=== PATIENT | female | born 1935 | race Two or more races ===

== ENCOUNTER 2017-03-19 01:55 | Inpatient (IN) | payer MEDICARE, OTHER ==
[~2017-03-19] VITALS: Ht 152.4 cm; Wt 74.2 kg
[2017-03-19] VITALS (59 sets, daily range): BP systolic 94–141; BP diastolic 43–98; PULSE 62–93; RESP 11–25; TEMP 98.4; Ht 152.4 cm; Wt 74.2 kg
[~2017-03-19 01:55] MED LIST: AMLO-218 PO; ASPI-664 PO; CLOP75TA27 PO; DIGO125T PO; FERR-55 PO; GLIM1TAB PO; IBUP-1542 PO; INSU100V14 SC; MAGN400T27 PO; METF500T4 PO; METO-448 PO; METO10TA92 PO; MULT1TAB13 PO; NITR0.4T6 SL; PANT40TA3 PO; SERT50TA PO; TRAM50TA2 PO
[2017-03-19] MEDS ORDERED: ACETAMINOPHEN 650 MG SUPP PR STA (01:59)
[2017-03-19] MEDS ORDERED: SOD CHLORIDE 0.9% 2,170 ML IV ONE (02:00)
[2017-03-19 02:23] LABS: ABNORMAL IP MESSAGE 1; BASOPHILS % 0.2 % (0.0-2.0); EOSINOPHILS # 0.1 10^3/ul (0.0-0.5); HEMATOCRIT 37.4 % (37.0-47.0); HEMOGLOBIN 12.7 g/dl (12.0-16.0); LYMPHOCYTES # 0.3 10^3/ul (0.8-2.9); LYMPHOCYTES % 6.2 % (15.0-51.0); MEAN CORPUSCULAR HEMOGLOBIN 28.7 pg (29.0-33.0); MEAN CORPUSCULAR VOLUME 84.6 fl (82.0-101.0); MEAN PLATELET VOLUME 9.5 fl (7.4-10.4); MONOCYTE # 0.1 10^3/ul (0.3-0.9); MONOCYTES % 1.9 % (0.0-11.0); NEUTROPHILS % 90.3 % (39.0-77.0); PLATELET COUNT 149 10^3/UL (140-415); RED BLOOD COUNT 4.42 10^6/ul (4.20-5.40); RED CELL DISTRIBUTION WIDTH 14.6 % (11.5-14.5); WHITE BLOOD COUNT 5.1 10^3/ul (4.8-10.8)
[2017-03-19 02:26] LABS: POSITIVE DIFF @See below
[2017-03-19 02:26] LABS: URINE BLOOD (Dip) POC 2+ (NEGATIVE)
[2017-03-19 02:39] LABS: INR 1.36; PROTIME 16.8 Sec (12.2-14.2); PT RATIO 1.3
[2017-03-19 02:40] LABS: PARTIAL THROMBOPLASTIN TIME 32.4 Sec (25.0-35.0)
--- NOTE | 2017-03-19 02:41 | RADRPT ---
PROCEDURE: XR Chest. CLINICAL INDICATION: Sepsis. TECHNIQUE: Single frontal chest x-ray. COMPARISON: 10/12/2015 FINDINGS: Patient is rotated to the right. The patient is status post time the. Heart is enlarged.. There ar e atherosclerotic calcifications of the aortic knob. There is mild CHF. There is no pleural effusi on. There is no pneumothorax. The osseous structures are unremarkable. IMPRESSION: Cardiomegaly. Mild CHF. RPTAT: HMVK .Shady Lake MD, Date Time Electronically viewed and signed by .Shady Lake MD, on 03/19/2017 02:40 .K/
[2017-03-19 02:45] LABS: ALBUMIN 3.7 g/dl (3.3-4.9); ALBUMIN/GLOBULIN RATIO 0.86; BILIRUBIN,DIRECT 2.9 mg/dl (0.00-0.20); BILIRUBIN,INDIRECT 1.7 mg/dl (0-1.1); BILIRUBIN,TOTAL 4.6 mg/dl (0.2-1.3); CALCIUM 8.9 mg/dl (8.4-10.2); CREATININE 1.24 mg/dl (0.44-1.00); POTASSIUM 3.7 mmol/L (3.5-5.1)
[2017-03-19 02:54] LABS: TROPONIN-I 0.038 ng/ml (0.00-0.12)
--- NOTE | 2017-03-19 03:58 | RADRPT ---
PROCEDURE: CT Abdomen and pelvis without contrast. CLINICAL INDICATION: Abdominal pain. TECHNIQUE: CT scan of the abdomen and pelvis was performed on a multi-detector high-resolution CT scanner. Contiguous axial images were obtained from the lung bases to the ischial tuberosities wit hout intravenous contrast. Coronal and sagittal reformatted images were also obtained. Images were reviewed on the PACS workstation. One or more of the following dose reduction techniques were used: - Automated exposure control. - Adjustment of the mA and/or kV according to patient size. - Use of iterative reconstruction technique. Exam CTD/vol = 20.31 mGy. Total exam DLP = 2367.45 mGy-cm. COMPARISON: 10/09/2015. FINDINGS: Evaluation of the lung bases demonstrates mild bibasilar atelectasis. The heart is moderately enlar ged with coronary artery calcifications. There is dilatation of the ascending aorta measuring up to 5.0 cm in diameter. Abdomen: The liver is normal in size with no focal mass identified. The patient is status post cho lecystectomy. There is moderate dilatation of the biliary tree with the common bile duct measuring up to 2.6 cm. There are small calculi within the common bile duct. There is hyperdensity within th e distal common bile duct at the level of the pancreatic head measuring 12 x 9 mm. The spleen, panc reas and bilateral adrenal glands are within normal limits. Bilateral kidneys are normal in size wi th multiple cysts. There is no radiopaque renal or ureteral calculus identified. There is no hydro nephrosis or hydroureter. There is no retroperitoneal adenopathy. The abdominal aorta is of normal caliber with scattered atherosclerotic calcifications. There is no abnormal bowel wall thickening or distension. There is no bowel obstruction or free air . A normal appendix is identified. There is no diverticulosis or diverticulitis. There is no asci joby. Pelvis: The bladder contains a Bonilla catheter. The uterus and adnexa are within normal limits. Th ere is no significant pelvic adenopathy or free fluid. Evaluation of the osseous structures demonstrates no suspicious lytic or blastic lesion. There are m oderate compression deformities of the L1 and L2 vertebral bodies with up to 70% loss in vertebral b adrian heights with evidence of prior vertebroplasty. There are mild to moderate compression deformiti es of the T12 and L3 vertebral bodies. The patient is status post total right hip arthroplasty. IMPRESSION: Moderate dilatation of the biliary tree with evidence of choledocholithiasis, unchanged from 016. There is hyperdensity within the distal common bile duct at the level of the pancreatic head wh ich could suggest stones or debris. Mild bibasilar atelectasis. Moderate cardiomegaly. Vascular calcifications reflective of atherosclerosis. Bilateral renal cysts. Multilevel mild to moderate compression deformities of the thoracolumbar spine, stable compared with 10/09/2015. Dilated ascending aorta measuring up to 5.0 cm, unchanged. .Contreras Colin MD, Date Time Electronically viewed and signed by .Contreras Colin MD, on 03/19/2017 03:57 .T/
[2017-03-19 04:00] LABS: ADD UMIC YES; UR ASCORBIC ACID NEGATIVE (NEGATIVE); UR BACTERIA FEW /HPF (NONE SEEN); UR BILIRUBIN (Dip) 1+ mg/dL (NEGATIVE); UR BLOOD (Dip) 2+ mg/dL (NEGATIVE); UR BUDDING YEAST MODERATE /HPF (NONE SEEN); UR CLARITY CLOUDY (CLEAR); UR COLOR AMBER (YELLOW); UR GLUCOSE (Dip) NEGATIVE (NEGATIVE); UR KETONES (Dip) NEGATIVE (NEGATIVE); UR LEUKOCYTE ESTERASE (Dip) 3+ Leu/ul (NEGATIVE); UR MUCUS FEW /HPF (NONE SEEN); UR NITRITE (Dip) NEGATIVE (NEGATIVE); UR RBC 40 /HPF (0-5); UR SPECIFIC GRAVITY (Dip) 1.017 (1.003-1.030); UR SQUAMOUS EPITHELIAL CELL FEW /HPF (FEW); UR TOTAL PROTEIN (Dip) 2+ mg/dl (NEGATIVE); UR UROBILINOGEN (Dip) 2+ mg/dL (NEGATIVE)
[2017-03-19] MEDS ORDERED: CEFEPIME 2GM/50 ML (PMX) 50 ML IVPB STA (04:11)
[2017-03-19] MEDS ORDERED: VANCOMYCIN 1 GM (PMX) 250 ML IVPB ONE (04:30)
[2017-03-19] MEDS ORDERED: PANTOPRAZOLE (EC) 40 MG TAB PO ONE (05:00)
[2017-03-19] MEDS ORDERED: DEXAMETHASONE 10 MG/ML 1 ML INJ IV ONE (05:30)
--- NOTE | 2017-03-19 05:42 | ERA ---
ER Documentation Chief Complaint Date/Time DATE: 03/19/17 TIME: 05:39 Chief Complaint abd pain, vomit, fever 105 at home, ALOC HPI This 81-year-old female with vomiting vomiting fever at home. She is also been mildly altered for the family as she is been more lethargic. Patient has history of choledocholithiasis and never had a Bonilla cystectomy.. History of GERD. The last 24 hours above fevers or chills. Mild nausea. 2 episodes of vomiting which nonbilious nonbloody. No other current complaints for the family. ROS All systems reviewed and are negative except as per history of present illness. Medications Home Meds Active Scripts Magnesium Oxide* (Mag-Oxide*) 400 Mg Tab, 400 MG PO DAILY for 30 Days, TAB Prov:LOLITA WEBER 10/21/15 Metoprolol Tartrate* (Lopressor*) 25 Mg Tab, 25 MG PO BID for 30 Days, TAB Prov:LOLITA WEBER 10/21/15 Ibuprofen* (Motrin*) 600 Mg Tab, 600 MG PO Q8 Y for FEVER GREATER THAN 100.6, # 30 Prov:SAHWIN FOX MD 01/31/15 Reported Medications Metoclopramide* (Reglan*) 10 Mg Tablet, 10 MG PO Q6H Y for NAUSEA AND OR VOMITING, TAB 10/09/15 Ferrous Sulfate* (Ferrous Sulfate*) 325 Mg Tablet, 325 MG PO DAILY, TAB 01/31/15 Sertraline Hcl* (Zoloft*) 50 Mg Tablet, 25 MG PO QHS, TAB 01/31/15 Aspirin* (Aspirin* EC) 81 Mg Tablet.dr, 81 MG PO DAILY, TAB 01/31/15 Tramadol HCl (Tramadol HCl) 50 Mg Tab, 50 MG PO Q6H Y for PAIN, TAB 01/31/15 Clopidogrel Bisulfate (Clopidogrel) 75 Mg Tablet, 75 MG PO DAILY, TAB 01/31/15 Digoxin* (Digoxin*) 0.125 Mg Tab, 0.125 MG PO EVERY OTHER DAY, TAB If HR greater than 60 01/31/15 Glimepiride* (Amaryl*) 1 Mg Tablet, 2 MG PO BID, TAB If Blood glucose greater than 150 01/31/15 Multivitamins/Minerals* (Multivitamin w/Minerals*) 1 Tab Tablet, 1 TAB PO DAILY 6/1/13 Nitroglycerin* (Nitroglycerin* SL) 0.4 Mg Tab.subl, 0.4 MG SL Q5 MINUTES X3 Y 12/13/12 Metformin* (Glucophage*) 500 Mg Tab, 500 MG PO BID 12/13/12 Pantoprazole* (Protonix*) 40 Mg Tablet.dr, 40 MG PO DAILY 12/13/12 Discontinued Reported Medications Insulin Regular, Human (Humulin R) 100 Units/Ml Vial, 0 SC SLIDING SCALE AC, VIAL 01/31/15 Discontinued Scripts Amlodipine Besylate* (Norvasc*) 10 Mg Tab, 10 MG PO DAILY for 30 Days, TAB Prov:LOLITA WEBER 10/21/15 Allergies Allergies: Coded Allergies: No Known Allergy (Unverified , 03/19/17) PMhx/Soc History of Surgery: Yes (ERCP, KYPHOPLASTY) Anesthesia Reaction: No Hx Neurological Disorder: No Hx Respiratory Disorders: No Hx Cardiac Disorders: Yes Hx Psychiatric Problems: No Hx Miscellaneous Medical Probl: Yes (CHOLECYSTITIS, BILE STONE, UTI, RT HIP FX) Hx Alcohol Use: No Hx Substance Use: No Hx Tobacco Use: No Smoking Status: Unknown if ever smoked Physical Exam Vitals Vital Signs Date Time Temp Pulse Resp B/P Pulse Ox O2 Delivery O2 Flow Rate FiO2 03/19/17 04:10 100.7 128 16 92/69 100 Nasal Cannula 5.0 03/19/17 02:10 Non Rebreather 15 03/19/17 01:55 103.4 177 32 139/99 88 Physical Exam Const: [] Head: Atraumatic Eyes: Normal Conjunctiva ENT: Normal External Ears, Nose and Mouth. Neck: Full range of motion..~ No meningismus. Resp: Clear to auscultation bilaterally Cardio: Regular rate and rhythm, no murmurs Abd: Soft, non tender, non distended. Normal bowel sounds Skin: No petechiae or rashes Back: No midline or flank tenderness Ext: No cyanosis, or edema Neur: Awake and alert Psych: Normal Mood and Affect Result Diagram: 03/19/17 0200 03/19/17 0200 Results 24 hrs Laboratory Tests Test 03/19/17 02:00 03/19/17 02:20 03/19/17 02:32 White Blood Count 5.110^3/ul Red Blood Count 4.4210^6/ul Hemoglobin 12.7g/dl Hematocrit 37.4% Mean Corpuscular Volume 84.6fl Mean Corpuscular Hemoglobin 28.7pg Mean Corpuscular Hemoglobin Concent 34.0g/dl Red Cell Distribution Width 14.6% Platelet Count 18933^3/UL Mean Platelet Volume 9.5fl Neutrophils % 90.3% Lymphocytes % 6.2% Monocytes % 1.9% Eosinophils % 1.0% Basophils % 0.2% Nucleated Red Blood Cells % 0.0/100WBC Neutrophils # (Manual) 4.610^3/ul Lymphocytes # 0.310^3/ul Monocytes # 0.110^3/ul Eosinophils # 0.110^3/ul Basophils # 0.010^3/ul Nucleated Red Blood Cells # 0.010^3/ul Prothrombin Time 16.8Sec Prothrombin Time Ratio 1.3 INR International Normalized Ratio 1.36 Activated Partial Thromboplast Time 32.4Sec Sodium Level 137mmol/L Potassium Level 3.7mmol/L Chloride Level 104mmol/L Carbon Dioxide Level 19mmol/L Anion Gap 18 Blood Urea Nitrogen 28mg/dl Creatinine 1.24mg/dl Glucose Level 174mg/dl Lactic Acid Level 2.7mmol/L Calcium Level 8.9mg/dl Total Bilirubin 4.6mg/dl Direct Bilirubin 2.90mg/dl Indirect Bilirubin 1.7mg/dl Aspartate Amino Transf (AST/SGOT) 350IU/L Alanine Aminotransferase (ALT/SGPT) 426IU/L Alkaline Phosphatase 342IU/L Troponin I 0.038ng/ml Total Protein 8.0g/dl Albumin 3.7g/dl Globulin 4.30g/dl Albumin/Globulin Ratio 0.86 Urine Color LINDY Urine Clarity CLOUDY Urine pH 5.0 Urine Specific [place] 1.017 Urine Ketones NEGATIVEmg/dL Urine Nitrite NEGATIVEmg/dL Urine Bilirubin 1+mg/dL Urine Urobilinogen 2+mg/dL Urine Leukocyte Esterase 3+Demarco/ul Urine Microscopic RBC 40/HPF Urine Microscopic WBC > 182/HPF Urine Squamous Epithelial Cells FEW/HPF Urine Bacteria FEW/HPF Urine Mucus FEW/HPF Urine Yeast (Budding) MODERATE/HPF Urine Hemoglobin 2+mg/dL Urine Glucose NEGATIVEmg/dL Urine Total Protein 2+mg/dl Bedside Urine pH (LAB) 5.5 Bedside Urine Protein (LAB) 2+ Bedside Urine Glucose (UA) Negative Bedside Urine Ketones (LAB) Negative Bedside Urine Blood 2+ Bedside Urine Nitrite (LAB) Positive Bedside Urine Leukocyte Esterase (L 3+ Current Medications Medications (Trade) Dose Ordered Sig/Alise Route PRN Reason Start Time Stop Time Status Last Admin Dose Admin Acetaminophen 650 mg 650 mg ONCE STAT IL 03/19/17 01:59 03/19/17 02:02 DC 03/19/17 02:17 Sodium Chloride 2,170 ml @ 2,170 mls/hr BOLUS X1 ONCE IV 03/19/17 02:00 03/19/17 02:59 DC 03/19/17 02:17 Cefepime HCl 50 ml @ 100 mls/hr ONCE STAT IVPB 03/19/17 04:11 03/19/17 04:40 DC 03/19/17 04:55 Vancomycin HCl (Vancocin) 250 ml @ 125 mls/hr ONCE ONCE IVPB 03/19/17 04:30 03/19/17 06:29 Pantoprazole (Protonix Tab) 40 mg ONCE ONCE PO 03/19/17 05:00 03/19/17 05:01 UNV Dexamethasone (Decadron) 10 mg ONCE ONCE IV 03/19/17 05:30 03/19/17 05:31 DC Procedures/MDM EKG: Rate/Rhythm: Sinus tachycardia 134 QRS, ST, T-waves: [No changes consistent w/ acute ischemia] Impression: [No evidence of ischemia or arrhythmia] Chest X-ray 1V Interpreted by me: Soft Tissue: No acute abnormalities Bones: No acute abnormalities Mediastinum/Cardiac Silhouette/Lungs: [No acute abnormalities] Medical decision-m[age]-year-old female with obvious choledocholithiasis along with elevation laboratory values for liver function tests, patient likely has biliary tree issues. Reviewing the medical record, patient on this once in the past. Patient will be admitted to [facility] physician collections agent Dr. Rutherford. Please to telemetry. Patient's infectious symptoms have not stabilized and the patient is at risk of rapid decompensation. The patient will be admitted for careful hydration, antibiotic therapy, and infectious source control. Severe Sepsis Assessment: Infectious Source: Biliary tree End organ damage indicated by: [Lactate > 2.0 mmol/L Severe Sepsis Managment: Blood Cultures X 2 before broad spectrum antibiotics initiated within 3 hours of recognition. 30 ml/kg NS bolus Completed Initial Lactate: 2.7 repeat Lactate pending Critical Care: Time: 45 minutes Treatments/Evaluations: Emergent fluid management, while maintaining close respiratory support. Immediate broad spectrum antibiotic therapy. Simultaneous assessment for possible sources in order to direct therapy. Consideration for invasive and chemical support to prevent respiratory or cardiac collapse. Accepting Care Team: Current data and ongoing care discussed. Time: 4:45 AM primary Provider: Sangeeta consulting: [XOXOXO] Outstanding Data: none Departure Diagnosis: Primary Impression: Sepsis Qualified Code: A41.9 - Sepsis, due to unspecified organism Additional Impression: Choledocholithiasis Condition: Critical TAZ GORDON Mar 19, 2017 05:42
[2017-03-19 05:57] LABS: ALBUMIN 1.8 g/dl (3.3-4.9); BILIRUBIN,DIRECT 1.2 mg/dl (0.00-0.20); BILIRUBIN,INDIRECT 0.8 mg/dl (0-1.1); TOTAL PROTEIN 4.3 g/dl (6.1-8.1)
[2017-03-19] MEDS ORDERED: ONDANSETRON (ODT) 4 MG TAB ODT ONE (06:09)
[2017-03-19] MEDS ORDERED: LIDOCAINE 1% (MPF) 5 ML VIAL SC ONE (06:30)
--- NOTE | 2017-03-19 07:06 | QN ---
Documentation Comment Patient was signed out to me by Dr. Castro. The patient has been persistently hypotensive despite 30 mL/kg fluid bolus. Dr. Castro ordered a PICC line prior to my arrival. I will upgrade the patient from telemetry to the ICU as the patient now has a diagnosis of septic shock. The diagnosis of septic shock was made at 7:03AM. Dr. Chamberlain has been called for ICU orders. I have ordered Levophed to be started as well to keep a blood pressure of a systolic greater than 90. Volume reassessment: Temperature 98.4, blood pressure 78/54, heart rate 94, respiratory rate 24, 99% oxygen saturation Skin: Warm and dry Pulses: 2+ palpable radial pulses General: Mild distress Cardiovascular: Regular rate and rhythm without murmur Pulmonary: Decreased breath sounds bilaterally JOAQUÍN STONE MD Mar 19, 2017 07:06
[2017-03-19] MEDS ORDERED: METOCLOPRAMIDE 10 MG TAB PO PRN (07:30)
[2017-03-19] MEDS: NORepinephrine 8MG/250 ML (PMX 250 ML IV STA ×2 (07:37→08:35)
[2017-03-19] MEDS ORDERED: GLIMEPIRIDE 2 MG TAB PO SCH (08:00)
[2017-03-19 08:01] LABS: ABNORMAL IP MESSAGE 1; BASOPHILS % 0.1 % (0.0-2.0); EOSINOPHILS % 0.1 % (0.0-7.0); HEMATOCRIT 32.8 % (37.0-47.0); HEMOGLOBIN 10.4 g/dl (12.0-16.0); LYMPHOCYTES # 0.5 10^3/ul (0.8-2.9); LYMPHOCYTES % 4.1 % (15.0-51.0); MEAN CORPUSCULAR HEMOGLOBIN 27.7 pg (29.0-33.0); MEAN CORPUSCULAR HGB CONC 31.7 g/dl (32.0-37.0); MEAN CORPUSCULAR VOLUME 87.5 fl (82.0-101.0); MEAN PLATELET VOLUME 9.7 fl (7.4-10.4); MONOCYTE # 0.5 10^3/ul (0.3-0.9); MONOCYTES % 4.1 % (0.0-11.0); NEUTROPHILS % 91.1 % (39.0-77.0); PLATELET COUNT 109 10^3/UL (140-415); RED BLOOD COUNT 3.75 10^6/ul (4.20-5.40); WHITE BLOOD COUNT 11.5 10^3/ul (4.8-10.8)
[2017-03-19 08:06] LABS: POSITIVE DIFF @See below
[2017-03-19] MEDS: FLUCONAZOLE 100 MG/NS (PMX) 50 ML IVPB SCH (08:25)
[2017-03-19 08:26] LABS: CALCIUM 7.3 mg/dl (8.4-10.2); CREATININE 1.37 mg/dl (0.44-1.00)
[2017-03-19] MEDS ORDERED: DIGOXIN 0.125 MG TAB PO SCH (08:42)
--- NOTE | 2017-03-19 10:09 | HP ---
Date/Time of Note Date/Time of Note DATE: 03/19/17 TIME: 09:16 Assessment/Plan VTE Prophylaxis VTE Prophylaxis Intervention: SCD's Lines/Catheters Urinary Cath still in place: No Assessment/Plan Assessment/Plan 81 years old female with: 1. Choledocholithiasis, likely ascending cholangitis with sepsis, Dr Rivers has been consulted, for now he is recommending IV antibiotics, patient will need ERCP when more stable, hopefully in the next 48 hours. Continue current care Follow up on cultures Daughter at bedside has been updated 2. Coronary artery disease, status post bypass surgery and aortic valve replacement. Patient apparently was also complaining of possible chest pain therefore troponins are being trended. Holding off beta-blockers due to hypotension 3. Chronic atrial fibrillation, currently in sinus rhythm, continue digoxin, check digoxin level today. No anticoagulation currently, patient has been on aspirin as an outpatient 4. Diabetes mellitus: Sliding scale insulin, check A1c. 5. Hypertension: Ongoing hypotension requiring pressors, hold off for all antihypertensive Prophylaxis: Protonix for GI prophylaxis, SCDs for DVT prophylaxis Disposition: ICU close monitoring, gastroenterology consult pending, continue IV antibiotics. HPI/ROS Admit Date/Time Admit Date/Time Mar 19, 2017 at 04:35 Hx of Present Illness Chief complaint: Fevers, chills, nausea, vomiting History of presenting illness: This is a 81-year-old female with history of coronary artery disease status post coronary artery bypass surgery and aortic valve replacement remotely, retention, diabetes mellitus, hyperlipidemia, status post a cholecystectomy September 2015 at [facility], presented with abdominal pain, nausea vomiting fevers and chills for 1 week now. Patient reports that last week on she started having episodes of nausea and upper abdominal pain, intermittent severe pain. Her daughter did confirm the symptoms. The patient lives alone but family visits very frequently. According to the daughter the patient p.o. intake has decreased over the past few days, she had an episode of fever yesterday up to 102, along with chills nausea and vomiting. She herself reports that her abdominal pain has been worsening. The emergency department she was found to be hypotensive, did not really respond to 4 L bolus normal saline therefore she was started on Levophed for blood pressure support. She has been febrile. She denies chills currently. She still having abdominal pain. CAT scan of the abdomen and pelvis is showing choledocholithiasis, clinically she fits cholangitis at this point. Dr. Rivers from gastroenterology was contacted and consulted, at this point the patient will need an ERCP when more stable, hopefully this can be done in the next 48 hours. She has been admitted to the intensive care unit. ROS Constitutional: chills, fatigue, febrile, poor po Cardiovascular: no complaints Gastrointestinal: decreased appetite, pain (Her abdomen, intermittent), vomiting Genitourinary: no complaints Musculoskeletal: no complaints Skin: no complaints Neurologic: no complaints Endocrine: no complaints PMH/Family/Social Past Medical History Diabetes mellitus Hypertension Hyperlipidemia Coronary artery disease status post coronary artery bypass surgery and aortic valve replacement Atrial fibrillation, chronic Cholelithiasis Past Surgical History Status post cholecystectomy September 2015 at [facility] Status post coronary artery bypass surgery and aortic valve replacement with bioprosthetic valve remotely Family History Significant Family History: no pertinent family hx Social History Alcohol Use: none Smoking Status: Never smoker Drug Use: none Exam/Review of Systems Vital Signs Vitals Vital Signs Date Time Temp Pulse Resp B/P Pulse Ox O2 Delivery O2 Flow Rate FiO2 03/19/17 08:44 85 24 116/84 100 Nasal Cannula 2.0 03/19/17 08:35 98.9 Exam Constitutional: alert, oriented, other (Primarily Swedish speaking) Respiratory: clear to auscultation, normal air movement Cardiovascular: nl pulses, regular rate and rhythm Gastrointestinal: soft, tender (Diffuse intermittent TTP, primarily upper abdomen/right upper quadrant) Musculoskeletal: nl extremities to inspection Extremities: normal pulses, other (No edema, clubbing or cyanosis) Neurological: CLOTH PACKER II-XII intact, lethargic, nl mental status, nl speech, other (Generalized weakness) Labs Result Diagram: 03/19/1733 03/19/17 0733 Medications Medications Current Medications Fluconazole/ Sodium Chloride (Diflucan 100 Mg/ NS (Pmx)) 50 ml @ 50 mls/hr Q24H IVPB Last administered on 03/19/17t 08:25; Admin Dose 50 MLS/HR; Start 03/19/17 at 07:30 Aspirin (Halfprin) 81 mg DAILY PO ; Start 03/19/17 at 09:00 Digoxin (Digoxin) 0.125 mg ONCE PO ; Start 03/19/17 at 08:42; Stop 03/19/17 at 10: 00 Ferrous Sulfate (Ferrous Sulfate (Ec)) 325 mg DAILY PO ; Start 03/19/17 at 09:00 Magnesium Oxide (Mag-Ox 400) 400 mg DAILY PO ; Start 03/19/17 at 09:00 Metoclopramide HCl (Reglan) 10 mg Q6H PRN PO NAUSEA AND/OR VOMITING; Start 03/19 at 07:30 Multivitamins/ Minerals (Theragran-M) 1 tab DAILY PO ; Start 03/19/17 at 09:00 Pantoprazole (Protonix Tab) 40 mg DAILY PO ; Start 03/20/17 at 07:00 Sertraline HCl (Zoloft) 25 mg QHS PO ; Start 03/19/17 at 21:00 KUMAR CELESTIN Mar 19, 2017 10:09
[2017-03-19] MEDS: MAGNESIUM OXIDE 400 MG TAB PO SCH (10:14)
[2017-03-19] MEDS: FERROUS SULFATE (EC) 325 MG TAB PO SCH (10:14)
[2017-03-19] MEDS: MULTIVITAMINS/MINERALS TAB PO SCH (10:14)
[2017-03-19] MEDS: ASPIRIN (EC) 81 MG TAB PO SCH (10:14)
[2017-03-19] MEDS: SOD CHLORIDE 0.9% 1,000 ML IV SCH ×2 (10:15→22:30)
[2017-03-19] MEDS ORDERED: ACETAMINOPHEN 650 MG SUPP PR PRN (10:30)
[2017-03-19] MEDS ORDERED: DEXTROSE 50% 50 ML SYRINGE IV PRN ×2 (10:30)
[2017-03-19] MEDS ORDERED: MAGNESIUM HYDROXIDE 30ML CUP PO PRN (10:30)
[2017-03-19] MEDS ORDERED: NACL 0.9% 3 ML SYG IV SCH (10:30)
[2017-03-19] MEDS ORDERED: NITROGLYCERIN (SL) 0.4 MG TAB SL PRN (10:30)
[2017-03-19] MEDS ORDERED: GLUCAGON 1 MG INJ IM PRN (10:30)
[2017-03-19] MEDS ORDERED: GLUCOSE GEL 15 GRAM TUBE PO PRN ×2 (10:30)
[2017-03-19] MEDS ORDERED: ACETAMINOPHEN 325 MG TAB PO PRN (10:30)
[2017-03-19] MEDS ORDERED: ONDANSETRON 4 MG INJ IV PRN (10:30)
[2017-03-19] MEDS ORDERED: BISACODYL 10 MG SUPP PR PRN (10:30)
[2017-03-19] MEDS ORDERED: GLUCOSE GEL 15 GRAM TUBE BUCCAL PRN (10:30)
[2017-03-19] MEDS ORDERED: DOCUSATE SODIUM 100 MG CAP PO PRN (10:30)
[2017-03-19 10:58] LABS: INR 1.42; PROTIME 17.4 Sec (12.2-14.2); PT RATIO 1.4
[2017-03-19 10:59] LABS: PARTIAL THROMBOPLASTIN TIME 35.5 Sec (25.0-35.0)
[2017-03-19 11:12] LABS: CK-MB 1.46 ng/ml (0.0-2.4)
[2017-03-19] MEDS: MEROPENEM 1 GM/50ML(PMX) 50 ML IVPB SCH ×2 (11:15→21:22)
[2017-03-19 11:20] LABS: TROPONIN-I 0.221 ng/ml (0.00-0.12)
[2017-03-19] MEDS: INSULIN ASPART [NOVOLOG] 3 ML PEN SC SCH ×3 (13:43→21:24)
[2017-03-19 17:24] LABS: CK-MB 1.66 ng/ml (0.0-2.4)
[2017-03-19 17:32] LABS: TROPONIN-I 0.134 ng/ml (0.00-0.12)
[2017-03-19] MEDS ORDERED: SOD CHLORIDE 0.9% 250 ML IV* ONE (18:55)
[2017-03-19] MEDS ORDERED: PHYTONADIONE 10 MG/ML INJ SC ONE (19:00)
[2017-03-19] MEDS: SERTRALINE 50 MG TAB PO SCH (21:17)
[2017-03-19 22:44] LABS: CK-MB 1.74 ng/ml (0.0-2.4); TROPONIN-I 0.115 ng/ml (0.00-0.12)
[2017-03-20] VITALS (33 sets, daily range): BP systolic 95–152; BP diastolic 59–106; PULSE 52–115; RESP 12–25
[2017-03-20] MEDS: INSULIN ASPART [NOVOLOG] 3 ML PEN SC SCH ×6 (00:56→21:27)
[2017-03-20] MEDS ORDERED: ACCU-CHEK XX SCH (02:00)
[2017-03-20 05:14] LABS: ABNORMAL IP MESSAGE 1; HEMATOCRIT 28.5 % (37.0-47.0); HEMOGLOBIN 9.2 g/dl (12.0-16.0); LYMPHOCYTES # 0.7 10^3/ul (0.8-2.9); LYMPHOCYTES % 8.8 % (15.0-51.0); MEAN CORPUSCULAR HEMOGLOBIN 27.7 pg (29.0-33.0); MEAN CORPUSCULAR HGB CONC 32.3 g/dl (32.0-37.0); MEAN CORPUSCULAR VOLUME 85.8 fl (82.0-101.0); MEAN PLATELET VOLUME 10.1 fl (7.4-10.4); MONOCYTE # 0.5 10^3/ul (0.3-0.9); MONOCYTES % 6.4 % (0.0-11.0); NEUTROPHILS % 83.8 % (39.0-77.0); PLATELET COUNT 92 10^3/UL (140-415); RED BLOOD COUNT 3.32 10^6/ul (4.20-5.40); RED CELL DISTRIBUTION WIDTH 14.9 % (11.5-14.5); WHITE BLOOD COUNT 7.7 10^3/ul (4.8-10.8)
[2017-03-20 05:18] LABS: POSITIVE DIFF @See below
[2017-03-20 05:31] LABS: ALBUMIN 2.8 g/dl (3.3-4.9); ALBUMIN/GLOBULIN RATIO 0.87; BILIRUBIN,INDIRECT 0.5 mg/dl (0-1.1); BILIRUBIN,TOTAL 0.5 mg/dl (0.2-1.3); CALCIUM 7.9 mg/dl (8.4-10.2); CREATININE 1.14 mg/dl (0.44-1.00); POTASSIUM 3.8 mmol/L (3.5-5.1)
[2017-03-20 05:38] LABS: MAGNESIUM 1.8 mg/dl (1.7-2.5); PHOSPHORUS 3.5 mg/dl (2.5-4.9)
[2017-03-20 05:41] LABS: CK-MB 1.79 ng/ml (0.0-2.4); TROPONIN-I 0.105 ng/ml (0.00-0.12)
[2017-03-20] MEDS ORDERED: PANTOPRAZOLE 40 MG INJ IV SCH (06:00)
[2017-03-20] MEDS ORDERED: SUCCINYLCHOLINE CHLORIDE 100 MG/5 ML SYG IV ONE (07:00)
[2017-03-20] MEDS ORDERED: PANTOPRAZOLE (EC) 40 MG TAB PO SCH (07:00)
[2017-03-20] MEDS: MAGNESIUM OXIDE 400 MG TAB PO SCH (08:26)
[2017-03-20] MEDS: ASPIRIN (EC) 81 MG TAB PO SCH (08:26)
[2017-03-20] MEDS: FERROUS SULFATE (EC) 325 MG TAB PO SCH (08:26)
[2017-03-20] MEDS: MULTIVITAMINS/MINERALS TAB PO SCH (08:26)
[2017-03-20] MEDS: MEROPENEM 1 GM/50ML(PMX) 50 ML IVPB SCH ×2 (08:42→20:53)
[2017-03-20] MEDS: FLUCONAZOLE 100 MG/NS (PMX) 50 ML IVPB SCH (08:42)
--- NOTE | 2017-03-20 09:17 | CONS ---
Date/Time of Note Date/Time of Note DATE: 03/20/17 TIME: 09:12 Assessment/Plan Assessment/Plan Chief Complaint/Hosp Course Impression: Preop CV Exam: given urgency of procedure which is endoscopic and low risk, ok to proceed without further cardiac workup. pt does have elevated cardiac risk, likely intermediate to high risk given cad/cabg hx, small trop leak (though likely from sepsis demand ischemia). she has poor functional status so difficult to assess for baseline symptoms, normal LVEF on 08/2016 echo, but will need to repeat if possible preop to make sure no large drop in lv function. will need further cardiac testing when acute issues resolve. Elevated trop: likely type ii given hypotension sepsis in setting of known cad hx s/p cabg. pt without current cp and trop was low level and down trending obtain echo, and start asa/statin when safe. will likely benefit from dapt therapy as well mcfp. may need stress vs. invasive testing when acute issues resolve CAD: as above s/p AVR- normal fxn on previous echo AF- rate control with amio, dig if hypotensive. otherwise with bb. not on anticoag given h/o falls. Problems: Consultation Date/Type/Reason Admit Date/Time Mar 19, 2017 at 04:35 Date of Consultation: Mar 20, 2017 Type of Consultation: Cardiology Reason for Consultation Preop, Elevated Trop Referring Provider: KUMAR CELESTIN Hx of Present Illness 81 y.o. with h/o of CABG, AVR 2004, chronic afib not on anticoag due to h/o falls, and poor functional status. pt presented to [facility] with a few days of chest pain, L arm pain, and abd pain with fatigue, lethargy. pt found to be septic with elevated transaminase levels and bili c/w choledocholithiasis. pt was on levophed started on abx and now off pressors, stable bp. pt scheudled for ercp today, cardiology consulted for preop evaluation. pt states she has no cp at this time. hx obtained with utilization management manager and via phone from her daughter. pt reports sob and mild pain with deep breaths. no pnd, orhtopnea, edema. no palpitations, dizziness. abd pain with palpation, but no current pain otherwise. pt has very poor fxn status, walks only a few feet with PT at home. otherwise in bed needs help with transfer. \ekg reviewed: afib with LBBB on presentation, now afib rate controlled. Subjective hx not possible: other (mexican speaking) Constitutional: improved Eyes: no complaints ENT: no complaints Respiratory: no complaints Cardiovascular: chest pain Gastrointestinal: decreased appetite, pain (Her abdomen, intermittent), vomiting Genitourinary: no complaints Musculoskeletal: no complaints Skin: no complaints Neurologic: no complaints Psychological: nl mood/affect Immunologic: no complaints Past Medical History Aneurysm of ascending aorta (441.2) (I71.2) History of Aortic Valve Replacement- 2004-Bioprosthetic aortic valve replacement (unknown details). Atrial flutter (427.32) (I48.92) History of CABG (CABG) 2004; s/p mi Chronic atrial fibrillation (427.31) (I48.2) No AC due to frequent falls Deep vein thrombosis of lower extremity (453.40) (I82.409)- h/o proximal right superficial femoral vein; not on coumadin due to GIB Diabetes mellitus (250.00) (E11.9) Dyslipidemia (272.4) (E78.5) History of fall (V15.88) (Z91.81) Hypertension (401.9) (I10) CKD Past Surgical History History of Aortic Valve Replacement 2004-Bioprosthetic aortic valve replacement (unknown details). TTE 06/2014 - 02/05 gradient; 1.1cm2 History of CABG (CABG) 2004; s/p mi History of Cholecystectomy History of Hip Surgery ORIF of subtrochanteric fracture 06/22/12 History of Percutaneous Placement Of Gastrostomy Tube Placed 07/18/12; Removed 12/18/12 Family History Significant Family History: other (no sig cad) Social History Alcohol Use: none Smoking Status: Never smoker Drug Use: none Exam/Review of Systems Vital Signs Vitals Vital Signs Date Time Temp Pulse Resp B/P Pulse Ox O2 Delivery O2 Flow Rate FiO2 03/20/17 08:00 74 03/20/17 06:00 18 147/96 98 Room Air 03/20/17 04:00 98.4 03/19/17 13:00 2.0 Intake and Output 03/19/17 03/19/17 03/20/17 14:59 22:59 06:59 Intake Total 413.125 ml 703.125 ml 1213 ml Output Total 220 ml 215 ml 305 ml Balance 193.125 ml 488.125 ml 908 ml Exam Constitutional: alert, oriented Psych: nl mood/affect, no complaints Head: atraumatic, normocephalic Eyes: nl conjunctiva ENMT: nl external ears & nose, nl lips & teeth Neck: non-tender, supple, No jvd Respiratory: other (carckles in bases) Cardiovascular: irregular rhythm, nl pulses, systolic murmur, No bruits, No edema, No gallop, No jugular venous distention (JVD), No rub Gastrointestinal: distended, soft, tender Musculoskeletal: nl extremities to inspection Extremities: normal pulses Neurological: [employer]ORAT[employer] TE[employer] II-XII intact, nl mental status, nl speech Skin: nl turgor Results Result Diagram: 03/20/1741903/20/17419 Results 24 hrs Laboratory Tests Test 03/19/17 10:19 03/19/17 13:36 03/19/17 16:20 03/19/17 17:29 Prothrombin Time 17.4 H Prothrombin Time Ratio 1.4 INR International Normalized Ratio 1.42 Activated Partial Thromboplast Time 35.5 H Hemoglobin A1c 6.0 H Creatine Kinase 34 39 Creatine Kinase Index 4.3 4.3 Creatinine Kinase MB (Mass) 1.46 1.66 Troponin I 0.221 *H 0.134 *H Digoxin Level < 0.4 L Bedside Glucose 215 202 Test 03/19/17 21:15 03/19/17 21:55 03/20/17 00:43 03/20/17 04:20 Bedside Glucose 141 128 Creatine Kinase 37 37 Creatine Kinase Index 4.7 4.8 Creatinine Kinase MB (Mass) 1.74 1.79 Troponin I 0.115 0.105 White Blood Count 7.7 # Red Blood Count 3.32 L Hemoglobin 9.2 L Hematocrit 28.5 L Mean Corpuscular Volume 85.8 Mean Corpuscular Hemoglobin 27.7 L Mean Corpuscular Hemoglobin Concent 32.3 Red Cell Distribution Width 14.9 H Platelet Count 92 L Mean Platelet Volume 10.1 Neutrophils % 83.8 H Lymphocytes % 8.8 L Monocytes % 6.4 Eosinophils % 0.0 Basophils % 0.0 Nucleated Red Blood Cells % 0.0 Neutrophils # (Manual) 6.4 Lymphocytes # 0.7 L Monocytes # 0.5 Eosinophils # 0.0 Basophils # 0.0 Nucleated Red Blood Cells # 0.0 Sodium Level 143 Potassium Level 3.8 Chloride Level 110 Carbon Dioxide Level 22 Anion Gap 15 Blood Urea Nitrogen 31 H Creatinine 1.14 H Glucose Level 125 Calcium Level 7.9 L Phosphorus Level 3.5 Magnesium Level 1.8 Total Bilirubin 0.5 Direct Bilirubin 0.00 # Indirect Bilirubin 0.5 Aspartate Amino Transf (AST/SGOT) 79 H Alanine Aminotransferase (ALT/SGPT) 192 H Alkaline Phosphatase 175 H Total Protein 6.0 #L Albumin 2.8 #L Globulin 3.20 Albumin/Globulin Ratio 0.87 Test 03/20/17 04:25 03/20/17 05:13 03/20/17 08:45 Bedside Glucose 87 118 Lab Scanned Report BLOOD TRANSFUSION Medications Medications Current Medications Fluconazole/ Sodium Chloride (Diflucan 100 Mg/ NS (Pmx)) 50 ml @ 50 mls/hr Q24H IVPB Last administered on 03/20/17 08:42; Admin Dose 50 MLS/HR; Start 03/19/17 at 07:30 Aspirin (Halfprin) 81 mg DAILY PO Last administered on 03/19/17 10:14; Admin Dose 81 MG; Start 03/19/17 at 09:00 Ferrous Sulfate (Ferrous Sulfate (Ec)) 325 mg DAILY PO Last administered on 03/19 10:14; Admin Dose 325 MG; Start 03/19/17 at 09:00 Magnesium Oxide (Mag-Ox 400) 400 mg DAILY PO Last administered on 03/19/17 10: 14; Admin Dose 400 MG; Start 03/19/17 at 09:00 Metoclopramide HCl (Reglan) 10 mg Q6H PRN PO NAUSEA AND/OR VOMITING; Start 03/19 at 07:30 Multivitamins/ Minerals (Theragran-M) 1 tab DAILY PO Last administered on 10:14; Admin Dose 1 TAB; Start 03/19/17 at 09:00 Sertraline HCl 25 mg 25 mg QHS PO Last administered on 03/19/17 21:17; Admin Dose 25 MG; Start 03/19/17 at 21:00 Sodium Chloride 1,000 ml @ 80 mls/hr [id number] IV Last administered on 03/19/17 22:30; Admin Dose 80 MLS/HR; Start 03/19/17 at 10:00 Meropenem/Sodium Chloride (Merrem 1 Gm/50 ml (Pmx)) 50 ml @ 100 mls/hr Q12 IVPB Last administered on 03/20/17 08:42; Admin Dose 100 MLS/HR; Start 03/19/17 at 11:00 Insulin Aspart (Novolog Insulin Pen) NOVOLOG *MILD* ALGORI... Q4 SC Last administered on 03/19/17 21:24; Admin Dose 1 UNIT; Start 03/19/17 at 13:00 Digoxin (Digoxin) 0.125 mg Q2D@13 PO ; Start 03/21/17 at 13:00 Ondansetron HCl (Zofran Inj) 4 mg Q6H PRN IV NAUSEA AND/OR VOMITING; Start 03/19 at 10:30 Nitroglycerin (Nitroglycerin (Sl Tab) 0.4 Mg) 1 tab Q5M PRN SL CHEST PAIN; Start 03/19/17 at 10:30 Acetaminophen (Tylenol Tab) 650 mg Q6H PRN PO PAIN LEVEL 1-3 OR FEVER Last administered on 03/20/17 01:49; Admin Dose 650 MG; Start 03/19/17 at 10:30 Acetaminophen (Tylenol Supp) 650 mg Q6H PRN [place] PAIN LEVEL 1-3 OR FEVER; Start 03/19/17 at 10:30 Morphine Sulfate (morphine) 2 mg Q4H PRN IV PAIN LEVEL 7-10; Start 03/19/17 at 10:30 Docusate Sodium (Colace) 100 mg Q12H PRN PO CONSTIPATION; Start 03/19/17 at 10: 30 Magnesium Hydroxide (Milk Of Mag) 30 ml DAILY PRN PO CONSTIPATION; Start at 10:30 Bisacodyl (Dulcolax Supp) 10 mg DAILY PRN [place] CONSTIPATION; Start 03/19/17 at 10: 30 Pantoprazole (Protonix Iv) 40 mg DAILY@06 IV Last administered on 03/20/17 05: 55; Admin Dose 40 MG; Start 03/20/17 at 06:00 Miscellaneous Information 1 ea NOTE XX ; Start 03/19/17 at 10:30 Glucose (Glutose) 15 gm Q15M PRN PO DECREASED GLUCOSE; Start 03/19/17 at 10:30 Glucose (Glutose) 22.5 gm Q15M PRN PO DECREASED GLUCOSE; Start 03/19/17 at 10:30 Dextrose (D50w Syringe) 25 ml Q15M PRN IV DECREASED GLUCOSE; Start 03/19/17 at 10:30 Dextrose (D50w Syringe) 50 ml Q15M PRN IV DECREASED GLUCOSE; Start 03/19/17 at 10:30 Glucagon (Glucagen) 1 mg Q15M PRN IM DECREASED GLUCOSE; Start 03/19/17 at 10:30 Glucose (Glutose) 15 gm Q15M PRN BUCCAL DECREASED GLUCOSE; Start 03/19/17 at 10: 30 Procedures Procedures cxr and ct reports reviewed in emr ERASTO SANTOS Mar 20, 2017 09:17
--- NOTE | 2017-03-20 09:26 | PN ---
Date/Time of Note Date/Time of Note DATE: 03/20/17 TIME: 09:12 Assessment/Plan VTE Prophylaxis VTE Prophylaxis Intervention: SCD's Lines/Catheters IV Catheter Type (from Nrs): Peripheral IV Urinary Cath still in place: Yes Reason Cath still needed: other (indicate) (Monitor urine output, acute kidney injury) Assessment/Plan Assessment/Plan 81 years old female with: 1. Choledocholithiasis, likely ascending cholangitis with sepsis, Dr Rivers has been consulted. LFTs improved today but patient still with ongoing pain. Continue IV antibiotics and plan for ERCP today as patient more stable and if okay with cardiology. Blood cultures no growth to date. 2. Coronary artery disease, status post bypass surgery and aortic valve replacement. Troponin trended back down, slight elevation likely secondary to sepsis and demand ischemia. Pressure much improved, will resume beta blockers if okay with cardiology. 3. Chronic atrial fibrillation, currently in sinus rhythm, continue digoxin, rate controlled Digoxin level subtherapeutic, continue digoxin. Hold aspirin today for procedure. Resume beta-blockers postprocedure today. 4. Diabetes mellitus: Sliding scale insulin, A1c 6.0. 5. Hypertension: Resolved hypotension, off pressors for 12 hours now. Blood pressure stable, will resume beta-blockers postprocedure today if remains stable. Prophylaxis: Protonix for GI prophylaxis, SCDs for DVT prophylaxis Disposition: ERCP today if okay with cardiology, continue IV antibiotics. Subjective 24 Hr Interval Summary Free Text/Dictation Patient more stable this morning, off Levophed, vital signs stable. Status stable. Troponin slightly elevated likely secondary to demand ischemia, cardiology evaluation ongoing. Plan for ERCP today at 12 PM today if okay with cardiology. Appreciate recommendations from gastroenterology. Exam/Review of Systems Vital Signs Vitals Vital Signs Date Time Temp Pulse Resp B/P Pulse Ox O2 Delivery O2 Flow Rate FiO2 03/20/17 08:00 74 03/20/17 06:00 18 147/96 98 Room Air 03/20/17 04:00 98.4 03/19/17 13:00 2.0 Intake and Output 03/19/17 03/19/17 03/20/17 14:59 22:59 06:59 Intake Total 413.125 ml 703.125 ml 1213 ml Output Total 220 ml 215 ml 305 ml Balance 193.125 ml 488.125 ml 908 ml Exam Constitutional: alert, oriented, well developed Respiratory: clear to auscultation, normal air movement Cardiovascular: irregular rhythm (chronic A fib ) Gastrointestinal: soft, tender (Intermittent epigastric pain to right upper quadrant and radiating to the back) Musculoskeletal: nl extremities to inspection Extremities: normal pulses, other (No edema, clubbing or cyanosis) 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, lethargic, nl mental status, nl speech, other (Generalized weakness) Results Result Diagram: 03/20/17 0420 03/20/17 0420 Results 24 hrs Laboratory Tests Test 03/19/17 10:19 03/19/17 13:36 03/19/17 16:20 03/19/17 17:29 Prothrombin Time 17.4 H Prothrombin Time Ratio 1.4 INR International Normalized Ratio 1.42 Activated Partial Thromboplast Time 35.5 H Hemoglobin A1c 6.0 H Creatine Kinase 34 39 Creatine Kinase Index 4.3 4.3 Creatinine Kinase MB (Mass) 1.46 1.66 Troponin I 0.221 *H 0.134 *H Digoxin Level < 0.4 L Bedside Glucose 215 202 Test 03/19/17 21:15 03/19/17 21:55 03/20/17 00:43 03/20/17 04:20 Bedside Glucose 141 128 Creatine Kinase 37 37 Creatine Kinase Index 4.7 4.8 Creatinine Kinase MB (Mass) 1.74 1.79 Troponin I 0.115 0.105 White Blood Count 7.7 # Red Blood Count 3.32 L Hemoglobin 9.2 L Hematocrit 28.5 L Mean Corpuscular Volume 85.8 Mean Corpuscular Hemoglobin 27.7 L Mean Corpuscular Hemoglobin Concent 32.3 Red Cell Distribution Width 14.9 H Platelet Count 92 L Mean Platelet Volume 10.1 Neutrophils % 83.8 H Lymphocytes % 8.8 L Monocytes % 6.4 Eosinophils % 0.0 Basophils % 0.0 Nucleated Red Blood Cells % 0.0 Neutrophils # (Manual) 6.4 Lymphocytes # 0.7 L Monocytes # 0.5 Eosinophils # 0.0 Basophils # 0.0 Nucleated Red Blood Cells # 0.0 Sodium Level 143 Potassium Level 3.8 Chloride Level 110 Carbon Dioxide Level 22 Anion Gap 15 Blood Urea Nitrogen 31 H Creatinine 1.14 H Glucose Level 125 Calcium Level 7.9 L Phosphorus Level 3.5 Magnesium Level 1.8 Total Bilirubin 0.5 Direct Bilirubin 0.00 # Indirect Bilirubin 0.5 Aspartate Amino Transf (AST/SGOT) 79 H Alanine Aminotransferase (ALT/SGPT) 192 H Alkaline Phosphatase 175 H Total Protein 6.0 #L Albumin 2.8 #L Globulin 3.20 Albumin/Globulin Ratio 0.87 Test 03/20/17 04:25 03/20/17 05:13 03/20/17 08:45 Bedside Glucose 87 118 Lab Scanned Report BLOOD TRANSFUSION Medications Medications Current Medications Fluconazole/ Sodium Chloride (Diflucan 100 Mg/ NS (Pmx)) 50 ml @ 50 mls/hr Q24H IVPB Last administered on 03/20/17 08:42; Admin Dose 50 MLS/HR; Start 03/19/17 at 07:30 Aspirin (Halfprin) 81 mg DAILY PO Last administered on 03/19/17 10:14; Admin Dose 81 MG; Start 03/19/17 at 09:00 Ferrous Sulfate (Ferrous Sulfate (Ec)) 325 mg DAILY PO Last administered on 03/19 10:14; Admin Dose 325 MG; Start 03/19/17 at 09:00 Magnesium Oxide (Mag-Ox 400) 400 mg DAILY PO Last administered on 03/19/17 10: 14; Admin Dose 400 MG; Start 03/19/17 at 09:00 Metoclopramide HCl (Reglan) 10 mg Q6H PRN PO NAUSEA AND/OR VOMITING; Start 03/19 at 07:30 Multivitamins/ Minerals (Theragran-M) 1 tab DAILY PO Last administered on 10:14; Admin Dose 1 TAB; Start 03/19/17 at 09:00 Sertraline HCl 25 mg 25 mg QHS PO Last administered on 03/19/17 21:17; Admin Dose 25 MG; Start 03/19/17 at 21:00 Sodium Chloride 1,000 ml @ 80 mls/hr [id number] IV Last administered on 03/19/17 22:30; Admin Dose 80 MLS/HR; Start 03/19/17 at 10:00 Meropenem/Sodium Chloride (Merrem 1 Gm/50 ml (Pmx)) 50 ml @ 100 mls/hr Q12 IVPB Last administered on 03/20/17 08:42; Admin Dose 100 MLS/HR; Start 03/19/17 at 11:00 Insulin Aspart (Novolog Insulin Pen) NOVOLOG *MILD* ALGORI... Q4 SC Last administered on 03/19/17 21:24; Admin Dose 1 UNIT; Start 03/19/17 at 13:00 Digoxin (Digoxin) 0.125 mg Q2D@13 PO ; Start 03/21/17 at 13:00 Ondansetron HCl (Zofran Inj) 4 mg Q6H PRN IV NAUSEA AND/OR VOMITING; Start 03/19 at 10:30 Nitroglycerin (Nitroglycerin (Sl Tab) 0.4 Mg) 1 tab Q5M PRN SL CHEST PAIN; Start 03/19/17 at 10:30 Acetaminophen (Tylenol Tab) 650 mg Q6H PRN PO PAIN LEVEL 1-3 OR FEVER Last administered on 03/20/17 01:49; Admin Dose 650 MG; Start 03/19/17 at 10:30 Acetaminophen (Tylenol Supp) 650 mg Q6H PRN [place] PAIN LEVEL 1-3 OR FEVER; Start 03/19/17 at 10:30 Morphine Sulfate (morphine) 2 mg Q4H PRN IV PAIN LEVEL 7-10; Start 03/19/17 at 10:30 Docusate Sodium (Colace) 100 mg Q12H PRN PO CONSTIPATION; Start 03/19/17 at 10: 30 Magnesium Hydroxide (Milk Of Mag) 30 ml DAILY PRN PO CONSTIPATION; Start at 10:30 Bisacodyl (Dulcolax Supp) 10 mg DAILY PRN [place] CONSTIPATION; Start 03/19/17 at 10: 30 Pantoprazole (Protonix Iv) 40 mg DAILY@06 IV Last administered on 03/20/17 05: 55; Admin Dose 40 MG; Start 03/20/17 at 06:00 Miscellaneous Information 1 ea NOTE XX ; Start 03/19/17 at 10:30 Glucose (Glutose) 15 gm Q15M PRN PO DECREASED GLUCOSE; Start 03/19/17 at 10:30 Glucose (Glutose) 22.5 gm Q15M PRN PO DECREASED GLUCOSE; Start 03/19/17 at 10:30 Dextrose (D50w Syringe) 25 ml Q15M PRN IV DECREASED GLUCOSE; Start 03/19/17 at 10:30 Dextrose (D50w Syringe) 50 ml Q15M PRN IV DECREASED GLUCOSE; Start 03/19/17 at 10:30 Glucagon (Glucagen) 1 mg Q15M PRN IM DECREASED GLUCOSE; Start 03/19/17 at 10:30 Glucose (Glutose) 15 gm Q15M PRN BUCCAL DECREASED GLUCOSE; Start 03/19/17 at 10: 30 KUMAR CELESTIN Mar 20, 2017 09:24
[2017-03-20] MEDS ORDERED: MAGNESIUM SULFATE 2 GM/50 ML 50 ML IVPB ONE (09:30)
[2017-03-20] MEDS: SOD CHLORIDE 0.9% 1,000 ML IV SCH ×3 (10:23→23:30)
[2017-03-20] MEDS ORDERED: IOHEXOL 300MG/ML 30 ML BTL ONE (11:39)
[2017-03-20] MEDS ORDERED: PROPOFOL 20 ML ONE (12:28)
[2017-03-20] MEDS ORDERED: FENTAnyl 50 MCG/ML VIAL ONE (12:28)
[2017-03-20] MEDS ORDERED: NEOSTIGMINE 3 MG/3 ML SYRINGE ONE (12:28)
[2017-03-20] MEDS ORDERED: MIDAZOLAM 1 MG/ML 2 ML INJ ONE (12:28)
[2017-03-20] MEDS ORDERED: GLYCOPYRROLATE 0.4 MG INJ ONE (12:28)
[2017-03-20] MEDS ORDERED: LIDOCAINE 2% (SDV) 5 ML INJ ONE (12:28)
[2017-03-20] MEDS ORDERED: ROCURONIUM 50 MG INJ ONE (12:28)
[2017-03-20] MEDS ORDERED: ONDANSETRON 4 MG INJ ONE (12:29)
[2017-03-20] MEDS ORDERED: DEXAMETHASONE 4 MG/ML 1 ML INJ ONE (12:29)
[2017-03-20] MEDS ORDERED: SUGAMMADEX SODIUM 200 MG/2 ML VIAL IV ONE (12:29)
--- NOTE | 2017-03-20 13:17 | HPN ---
Date/Time of Note Date/Time of Note DATE: 03/20/17 TIME: 13:16 Interval H&P Admission Note Pt. seen H&P reviewed: No system changes PATRIZIA CALIX MD Mar 20, 2017 13:17
--- NOTE | 2017-03-20 13:23 | OPR ---
Date/Time of Note Date/Time of Note DATE: 03/20/17 TIME: 13:17 Operative Report Procedure Date: Mar 20, 2017 Preoperative Diagnosis cholangitis cbd stones Postoperative Diagnosis cbd stones large cbd stent placed Operation Performed ercp cbd stones noted 04/20 cbd stent placed Surgeon: PATRIZIA CALIX MD Anesthesia Type: general Anesthesiologist: JOHANA JO MD Estimated Blood Loss: none Transfusion Required: no Specimen: none Specimens none Grafts/Implants: none Grafts/Implants none Tubes/Drains none Complications: no Pt Condition Post Procedure: stable Indications cbd stones with cholangitis Operative\Procedure Findings ercp performed cbd dilated large cbd stones noted sphincterotomy not performed [pt not very stable] 04/20 cbd stent placed PATRIZIA CALIX MD Mar 20, 2017 13:23
[2017-03-20] MEDS: morphine 2 MG INJ IV PRN ×2 (14:10→20:52)
--- NOTE | 2017-03-20 14:38 | RADRPT ---
Echocardiogram Report Patient Name: CATIE BURNS Gender: Female Date: 1935 Study Date: 20-Mar-2017 Inventory Control Clerk: Skye El RDCS Location: 120 Ref. Physician: FELICE SANTOS Quality: Adequate Procedures: Transthoracic echocardiogram with complete 2D, M-Mode, and doppler examination. Indications: NSTEMI. Pre-op. 2D/M Mode Doppler Measurement Value Normal Ranges Measurement Value Normal Ranges LVIDd 2D 4.8 3.5 - 5.6 cm TOMÁS Vmax 3.2 cm2 LVIDs 2D 3.0 2.1 - 4.1 cm TOMÁS VTI 3.2 cm2 LVPWd 2D 1.1 0.6 - 1.1 cm AV Mean Ryan 1.3 m/sec IVSd 2D 1.1 0.6 - 1.1 cm AV Mean PG 8.2 mmHg AoR Diam 2D 3.5 2.0 - 3.7 cm AV Peak Ryan 2.1 m/sec EDV 2D 105.8 cm3 AV Peak PG 10.9 mmHg ESV 2D 27.4 cm3 AV VTI 39.5 cm LA Dimen 2D 4.0 2.3 - 4.0 cm LVOT Mean Ryan 1.1 m/sec LVOT Diam 2.1 cm LVOT Mean PG 6.5 mmHg LVOT Peak Ryan 1.9 m/sec LVOT Peak PG 6.9 mmHg LVOT VTI 37.1 cm TR Peak Ryan 3.5 m/sec TR Peak PG 50.3 mmHg RVSP 65.0 mmHg Findings Left Ventricle: Normal left ventricular systolic function. Normal left ventricular cavity size. Normal left ventricular wall thickness. Mild concentric left ventricular hypertrophy. Ejection fraction is visually estimated at 60 %. Tissue Doppler/Mitral Doppler indices are indeterminate in this study due to the presence of afib. Right Ventricle: Normal right ventricular systolic function. Mild enlargement of right ventricle. Left Atrium: There is mild enlargement of left atrium. Right Atrium: There is mild enlargement of right atrium. Mitral Valve: Mitral valve leaflets appear mildly thickened. Moderate mitral annular calcification. Mild mitral valve regurgitation. Aortic Valve: Aortic Valve Bio Prosthesis. Gradients normal for valve type and size. Aortic valve Max velocity 2.13 m/sec. Max PG 18.00 mmHg. Mean PG 8.20 mmHg. No aortic regurgitation. Tricuspid Valve: Normal appearance of the tricuspid valve. Right ventricular systolic pressure is consistent with moderate pulmonary hypertension. Estimated peak PA systolic pressure 65 mmHg. There is mild to moderate tricuspid regurgitation. Pulmonic Valve: Pulmonic valve not well visualized. No evidence of pulmonic regurgitation. Pericardium: Normal pericardium with no significant pericardial effusion. Aorta: There is moderate aortic root dilation. IVC: Dilated IVC without respiratory collapse consistent with elevated right atrial pressure. Conclusions Normal left ventricular systolic function. Normal left ventricular cavity size. Normal left ventricular wall thickness. Mild concentric left ventricular hypertrophy. Ejection fraction is visually estimated at 60 %. Tissue Doppler/Mitral Doppler indices are indeterminate in this study due to the presence of afib. Normal right ventricular systolic function. Mild enlargement of right ventricle. There is mild enlargement of left atrium. There is mild enlargement of right atrium. Normal appearance of the tricuspid valve. Right ventricular systolic pressure is consistent with moderate pulmonary hypertension. Estimated peak PA systolic pressure 65 mmHg. There is mild to moderate tricuspid regurgitation. Dilated IVC without respiratory collapse consistent with elevated right atrial pressure. No Vegetation, masses, or thrombi seen. Electronically Signed By: Felice Santos 20-Mar-2017 14:37:19 -0700 Patient Name: CATIE BURNS Study Date: 20-Mar-2017 [id number]
--- NOTE | 2017-03-20 15:02 | GILP ---
DATE OF PROCEDURE: 03/20/2017 PROCEDURE PERFORMED: Endoscopic retrograde cholangiopancreatography. PREOPERATIVE DIAGNOSIS: The patient presenting with history of cholangitis and hypotension with a history of having choledocholithiasis on the CT scan of the abdomen. Procedure at this time is performed to create access for biliary drainage. The patient sustained a small myocardial infarction, hence only palliative stent placement has been planned. POSTOPERATIVE DIAGNOSIS: At least 17-18 mm common bile duct stone was noted. The bile duct was found to be dilated. Small stones were noted in the common bile duct. Because the patient had a small heart attack at this time, I elected to put a stent in and because of that, I put a common bile duct stent and then the procedure was terminated. DESCRIPTION OF PROCEDURE: After informed written consent is obtained, the patient was intubated by anesthesiologist, Dr. Brand. While the patient was in prone position, the Olympus video side-viewing duodenoscope was inserted into the oropharynx and then into the esophagus and then into the stomach and then into the duodenum. 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 There was a diverticula noted, one on each side of the ampulla. At this time, cannulation was performed with the help of a Dreamtome. Contrast was injected. There was a large filling defect noted in the common bile duct and a small filling defect noted also. At this time, the Dreamtome was removed and over the guidewire, a 10 x 7 Wolf- type of CBD stent was placed into the common bile duct across the ampulla into the duodenum and photographs were obtained and the procedure was terminated. PLAN: Recommend continue antibiotic therapy. Follow the patient closely. Dictated By: Sha Rivers MD /[email or web address] /Document#: [id number] CC: Chuck Chamberlain MD;*[facility]*
--- NOTE | 2017-03-20 19:17 | RADRPT ---
Vent Rate: 73 bpm RR Interval: 0 msec WV Interval: 0 msec QRS Duration: 66 msec QT Interval: 444 msec QTC Interval: 489 msec P-R-T Peetz: 0 - 9 - 52 degrees Atrial fibrillation with premature ventricular or aberrantly conducted complexes Low voltage QRS Cannot rule out Anterior infarct , age undetermined Abnormal ECG Electronically Signed By: Geovanny Santoro [id number]
[2017-03-20] MEDS: METOPROLOL 25 MG TAB PO SCH (20:57)
[2017-03-20] MEDS: SERTRALINE 50 MG TAB PO SCH (20:57)
[2017-03-21] VITALS (19 sets, daily range): BP systolic 128–148; BP diastolic 73–106; PULSE 67–93; RESP 14–21
[2017-03-21] MEDS: morphine 2 MG INJ IV PRN ×5 (01:48→21:17)
[2017-03-21] MEDS: INSULIN ASPART [NOVOLOG] 3 ML PEN SC SCH ×6 (01:57→21:00)
[2017-03-21] MEDS: PANTOPRAZOLE (EC) 40 MG TAB PO SCH (05:26)
[2017-03-21] MEDS: SOD CHLORIDE 0.9% 1,000 ML IV SCH ×2 (05:28→11:56)
[2017-03-21 05:45] LABS: BASOPHILS % 0.1 % (0.0-2.0); HEMOGLOBIN 10.6 g/dl (12.0-16.0); LYMPHOCYTES # 0.7 10^3/ul (0.8-2.9); LYMPHOCYTES % 8.9 % (15.0-51.0); MEAN CORPUSCULAR HGB CONC 32.1 g/dl (32.0-37.0); MEAN CORPUSCULAR VOLUME 87.3 fl (82.0-101.0); MEAN PLATELET VOLUME 9.9 fl (7.4-10.4); MONOCYTE # 0.4 10^3/ul (0.3-0.9); MONOCYTES % 5.3 % (0.0-11.0); NEUTROPHILS % 84.7 % (39.0-77.0); PLATELET COUNT 126 10^3/UL (140-415); RED BLOOD COUNT 3.78 10^6/ul (4.20-5.40); RED CELL DISTRIBUTION WIDTH 15.6 % (11.5-14.5); WHITE BLOOD COUNT 8.1 10^3/ul (4.8-10.8)
[2017-03-21 06:02] LABS: ALBUMIN 2.9 g/dl (3.3-4.9); ALBUMIN/GLOBULIN RATIO 0.87; BILIRUBIN,INDIRECT 0.3 mg/dl (0-1.1); BILIRUBIN,TOTAL 0.3 mg/dl (0.2-1.3); CALCIUM 8.3 mg/dl (8.4-10.2); CREATININE 1.02 mg/dl (0.44-1.00); POTASSIUM 4.7 mmol/L (3.5-5.1); TOTAL PROTEIN 6.2 g/dl (6.1-8.1)
[2017-03-21 06:04] LABS: MAGNESIUM 2.4 mg/dl (1.7-2.5); PHOSPHORUS 3.3 mg/dl (2.5-4.9)
[2017-03-21] MEDS: FLUCONAZOLE 100 MG/NS (PMX) 50 ML IVPB SCH (07:58)
--- NOTE | 2017-03-21 08:38 | CONS ---
Date/Time of Note Date/Time of Note DATE: 03/21/17 TIME: 08:32 Assessment/Plan Assessment/Plan Chief Complaint/Hosp Course Impression: Elevated trop: likely type ii given hypotension sepsis in setting of known cad hx s/p cabg. trop was low level. no acute wma on echo. overall normal lvef. cont asa/statin/bb. will trend troponin. may need stress vs. invasive testing when acute issues resolve CAD chronic s/p cabg: as above s/p AVR- normal fxn on previous echo Atrial fibrillation chronic- rate controlled with metoprolol. digoxin. not on anticoag chronically given immobility and fall history Pain- likely from choledocholithiasis, ? pancreatitis. per GI Sepsis- resolved. bp stable off pressors. Problems: Consultation Date/Type/Reason Admit Date/Time Mar 19, 2017 at 04:35 Initial Consult Date 03/20/17 Type of Consultation: Cardiology Referring Provider: KUMAR CELESTIN 24 HR Interval Summary Free Text/Dictation pt s/p ercp yesterday, had stone in CBD s/p stenting. pt reports upper abd pain , band like. appears comfortable while resting. states feels sob with deep breaths, no tachypnea noted. ekg reviewed: afib, rate controlled, no acute changes. Detailed Summary Eyes: no complaints ENT: no complaints Respiratory: shortness of breath Cardiovascular: chest pain Gastrointestinal: pain Exam/Review of Systems Vital Signs Vitals Vital Signs Date Time Temp Pulse Resp B/P Pulse Ox O2 Delivery O2 Flow Rate FiO2 03/21/17 08:00 97.8 88 19 148/93 100 Nasal Cannula 03/21/17 06:00 2.0 Intake and Output 03/20/17 03/20/17 03/21/17 15:00 23:00 07:00 Intake Total 690 ml 1070 ml 1240 ml Output Total 375 ml 420 ml 340 ml Balance 315 ml 650 ml 900 ml Exam Constitutional: alert, oriented Psych: nl mood/affect, no complaints Head: atraumatic, normocephalic Eyes: nl conjunctiva ENMT: nl external ears & nose, nl lips & teeth Neck: non-tender, supple, No jvd Respiratory: other (carckles in bases) Cardiovascular: irregular rhythm, nl pulses, systolic murmur, No bruits, No edema, No gallop, No jugular venous distention (JVD), No rub Gastrointestinal: distended, soft, tender Musculoskeletal: nl extremities to inspection Extremities: normal pulses 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, nl mental status, nl speech Skin: nl turgor Results Result Diagram: 03/21/17 0520 03/21/17 0520 Results 24 hrs Laboratory Tests Test 03/20/17 08:45 03/20/17 12:17 03/20/17 17:28 03/20/17 21:04 Bedside Glucose 118 97 169 208 Test 03/21/17 01:49 03/21/17 05:20 03/21/17 05:22 03/21/17 08:03 Bedside Glucose 141 133 130 White Blood Count 8.1 Red Blood Count 3.78 L Hemoglobin 10.6 L Hematocrit 33.0 L Mean Corpuscular Volume 87.3 Mean Corpuscular Hemoglobin 28.0 L Mean Corpuscular Hemoglobin Concent 32.1 Red Cell Distribution Width 15.6 H Platelet Count 126 #L Mean Platelet Volume 9.9 Neutrophils % 84.7 H Lymphocytes % 8.9 L Monocytes % 5.3 Eosinophils % 0.0 Basophils % 0.1 Nucleated Red Blood Cells % 0.0 Neutrophils # (Manual) 6.9 Lymphocytes # 0.7 L Monocytes # 0.4 Eosinophils # 0.0 Basophils # 0.0 Nucleated Red Blood Cells # 0.0 Sodium Level 141 Potassium Level 4.7 Chloride Level 113 H Carbon Dioxide Level 23 Anion Gap 10 # Blood Urea Nitrogen 32 H Creatinine 1.02 H Glucose Level 138 Calcium Level 8.3 L Phosphorus Level 3.3 Magnesium Level 2.4 Total Bilirubin 0.3 Direct Bilirubin 0.00 Indirect Bilirubin 0.3 Aspartate Amino Transf (AST/SGOT) 39 Alanine Aminotransferase (ALT/SGPT) 148 H Alkaline Phosphatase 163 H Total Protein 6.2 Albumin 2.9 L Globulin 3.30 H Albumin/Globulin Ratio 0.87 Medications Medications Current Medications Fluconazole/ Sodium Chloride (Diflucan 100 Mg/ NS (Pmx)) 50 ml @ 50 mls/hr Q24H IVPB Last administered on 03/21/17 07:58; Admin Dose 50 MLS/HR; Start 03/19/17 at 07:30 Aspirin (Halfprin) 81 mg DAILY PO Last administered on 03/19/17 10:14; Admin Dose 81 MG; Start 03/19/17 at 09:00 Ferrous Sulfate (Ferrous Sulfate (Ec)) 325 mg DAILY PO Last administered on 03/19 10:14; Admin Dose 325 MG; Start 03/19/17 at 09:00 Magnesium Oxide (Mag-Ox 400) 400 mg DAILY PO Last administered on 03/19/17 10: 14; Admin Dose 400 MG; Start 03/19/17 at 09:00 Metoclopramide HCl (Reglan) 10 mg Q6H PRN PO NAUSEA AND/OR VOMITING; Start 03/19 at 07:30 Multivitamins/ Minerals (Theragran-M) 1 tab DAILY PO Last administered on 10:14; Admin Dose 1 TAB; Start 03/19/17 at 09:00 Sertraline HCl 25 mg 25 mg QHS PO Last administered on 03/20/17 20:57; Admin Dose 25 MG; Start 03/19/17 at 21:00 Sodium Chloride 1,000 ml @ 80 mls/hr [id number] IV Last administered on 03/21/17 05:28; Admin Dose 80 MLS/HR; Start 03/19/17 at 10:00 Meropenem/Sodium Chloride (Merrem 1 Gm/50 ml (Pmx)) 50 ml @ 100 mls/hr Q12 IVPB Last administered on 03/20/17 20:53; Admin Dose 100 MLS/HR; Start 03/19/17 at 11:00 Insulin Aspart (Novolog Insulin Pen) NOVOLOG *MILD* ALGORI... Q4 SC Last administered on 03/21/17 01:57; Admin Dose 1 UNIT; Start 03/19/17 at 13:00 Digoxin (Digoxin) 0.125 mg Q2D@13 PO ; Start 03/21/17 at 13:00 Ondansetron HCl (Zofran Inj) 4 mg Q6H PRN IV NAUSEA AND/OR VOMITING; Start 03/19 at 10:30 Nitroglycerin (Nitroglycerin (Sl Tab) 0.4 Mg) 1 tab Q5M PRN SL CHEST PAIN; Start 03/19/17 at 10:30 Acetaminophen (Tylenol Tab) 650 mg Q6H PRN PO PAIN LEVEL 1-3 OR FEVER Last administered on 03/20/17 01:49; Admin Dose 650 MG; Start 03/19/17 at 10:30 Acetaminophen (Tylenol Supp) 650 mg Q6H PRN [place] PAIN LEVEL 1-3 OR FEVER; Start 03/19/17 at 10:30 Morphine Sulfate (morphine) 2 mg Q4H PRN IV PAIN LEVEL 7-10 Last administered on 03/21/17 05:32; Admin Dose 2 MG; Start 03/19/17 at 10:30 Docusate Sodium (Colace) 100 mg Q12H PRN PO CONSTIPATION; Start 03/19/17 at 10: 30 Magnesium Hydroxide (Milk Of Mag) 30 ml DAILY PRN PO CONSTIPATION; Start at 10:30 Bisacodyl (Dulcolax Supp) 10 mg DAILY PRN [place] CONSTIPATION; Start 03/19/17 at 10: 30 Miscellaneous Information 1 ea NOTE XX ; Start 03/19/17 at 10:30 Glucose (Glutose) 15 gm Q15M PRN PO DECREASED GLUCOSE; Start 03/19/17 at 10:30 Glucose (Glutose) 22.5 gm Q15M PRN PO DECREASED GLUCOSE; Start 03/19/17 at 10:30 Dextrose (D50w Syringe) 25 ml Q15M PRN IV DECREASED GLUCOSE; Start 03/19/17 at 10:30 Dextrose (D50w Syringe) 50 ml Q15M PRN IV DECREASED GLUCOSE; Start 03/19/17 at 10:30 Glucagon (Glucagen) 1 mg Q15M PRN IM DECREASED GLUCOSE; Start 03/19/17 at 10:30 Glucose (Glutose) 15 gm Q15M PRN BUCCAL DECREASED GLUCOSE; Start 03/19/17 at 10: 30 Pantoprazole (Protonix Tab) 40 mg DAILY@06 PO Last administered on 03/21/17 05: 26; Admin Dose 40 MG; Start 03/21/17 at 06:00 Metoprolol Tartrate (Lopressor) 25 mg BID PO Last administered on 03/20/17 20: 57; Admin Dose 25 MG; Start 03/20/17 at 21:00 Procedures Procedures giprocedure note reviewed imaging reports reviewed in emr tele reviewed: afib, rate controlled ERASTO SANTOS Mar 21, 2017 08:38
[2017-03-21 09:04] LABS: TROPONIN-I 0.077 ng/ml (0.00-0.12)
[2017-03-21] MEDS: ASPIRIN (EC) 81 MG TAB PO SCH (09:06)
[2017-03-21] MEDS: MULTIVITAMINS/MINERALS TAB PO SCH (09:06)
[2017-03-21] MEDS: MAGNESIUM OXIDE 400 MG TAB PO SCH (09:06)
[2017-03-21] MEDS: FERROUS SULFATE (EC) 325 MG TAB PO SCH (09:07)
[2017-03-21] MEDS: METOPROLOL 25 MG TAB PO SCH ×2 (09:07→21:17)
--- NOTE | 2017-03-21 09:11 | PN ---
Date/Time of Note Date/Time of Note DATE: 03/21/17 TIME: 08:49 Assessment/Plan VTE Prophylaxis VTE Prophylaxis Intervention: SCD's Lines/Catheters IV Catheter Type (from Nrs): Peripheral IV Central line site: d/c fem line today Urinary Cath still in place: Yes Reason Cath still needed: other (indicate) (monitor UOP ) Assessment/Plan Assessment/Plan 81 years old female with: 1. Choledocholithiasis, likely ascending cholangitis with sepsis. LFTs improved today but patient still with ongoing pain. Continue IV antibiotics and s/p ERCP yesterday with placement of a stent, still with pain this AM Pancreatic enzymes pending, on full liquid currently. Blood cultures no growth to date. 2. Coronary artery disease, status post bypass surgery and aortic valve replacement. Troponin trended back down, slight elevation likely secondary to sepsis and demand ischemia. Given complains of epigastric pain, check troponin, EKG stable per cardiology. 3. Chronic atrial fibrillation, currently in sinus rhythm, continue digoxin, rate controlled Continue digoxin. Resuming all cardiac meds. 4. Diabetes mellitus: Sliding scale insulin, A1c 6.0. 5. Hypertension: Resolved hypotension, off pressors x 2 days now and back on Bblock. Blood pressure stable. Prophylaxis: Protonix for GI prophylaxis, SCDs for DVT prophylaxis Disposition: Transfer to Telemetry today. Subjective 24 Hr Interval Summary Free Text/Dictation Patient still complaining of epigastric persaud, EKG wnl, troponin and amylase/ lipase pending labs otherwise stable On IV abx Transfer to Tele Exam/Review of Systems Vital Signs Vitals Vital Signs Date Time Temp Pulse Resp B/P Pulse Ox O2 Delivery O2 Flow Rate FiO2 03/21/17 08:00 97.8 88 19 148/93 100 Nasal Cannula 03/21/17 06:00 2.0 Intake and Output 03/20/17 03/20/17 03/21/17 15:00 23:00 07:00 Intake Total 690 ml 1070 ml 1240 ml Output Total 375 ml 420 ml 340 ml Balance 315 ml 650 ml 900 ml Exam Constitutional: alert, oriented, well developed Respiratory: clear to auscultation, normal air movement Cardiovascular: irregular rhythm (controlled A fib) Gastrointestinal: soft, tender (epigastic to LUQ and back ) Musculoskeletal: nl extremities to inspection Extremities: normal pulses 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, nl mental status, nl speech, other ( generalized weakness) Results Result Diagram: 03/21/17 0520 03/21/17 0520 Results 24 hrs Laboratory Tests Test 03/20/17 12:17 03/20/17 17:28 03/20/17 21:04 03/21/17 01:49 Bedside Glucose 97 169 208 141 Test 03/21/17 05:20 03/21/17 05:22 03/21/17 08:03 White Blood Count 8.1 Red Blood Count 3.78 L Hemoglobin 10.6 L Hematocrit 33.0 L Mean Corpuscular Volume 87.3 Mean Corpuscular Hemoglobin 28.0 L Mean Corpuscular Hemoglobin Concent 32.1 Red Cell Distribution Width 15.6 H Platelet Count 126 #L Mean Platelet Volume 9.9 Neutrophils % 84.7 H Lymphocytes % 8.9 L Monocytes % 5.3 Eosinophils % 0.0 Basophils % 0.1 Nucleated Red Blood Cells % 0.0 Neutrophils # (Manual) 6.9 Lymphocytes # 0.7 L Monocytes # 0.4 Eosinophils # 0.0 Basophils # 0.0 Nucleated Red Blood Cells # 0.0 Sodium Level 141 Potassium Level 4.7 Chloride Level 113 H Carbon Dioxide Level 23 Anion Gap 10 # Blood Urea Nitrogen 32 H Creatinine 1.02 H Glucose Level 138 Calcium Level 8.3 L Phosphorus Level 3.3 Magnesium Level 2.4 Total Bilirubin 0.3 Direct Bilirubin 0.00 Indirect Bilirubin 0.3 Aspartate Amino Transf (AST/SGOT) 39 Alanine Aminotransferase (ALT/SGPT) 148 H Alkaline Phosphatase 163 H Total Protein 6.2 Albumin 2.9 L Globulin 3.30 H Albumin/Globulin Ratio 0.87 Bedside Glucose 133 130 Medications Medications Current Medications Fluconazole/ Sodium Chloride (Diflucan 100 Mg/ NS (Pmx)) 50 ml @ 50 mls/hr Q24H IVPB Last administered on 03/21/17 07:58; Admin Dose 50 MLS/HR; Start 03/19/17 at 07:30 Aspirin (Halfprin) 81 mg DAILY PO Last administered on 03/19/17 10:14; Admin Dose 81 MG; Start 03/19/17 at 09:00 Ferrous Sulfate (Ferrous Sulfate (Ec)) 325 mg DAILY PO Last administered on 03/19 10:14; Admin Dose 325 MG; Start 03/19/17 at 09:00 Magnesium Oxide (Mag-Ox 400) 400 mg DAILY PO Last administered on 03/19/17 10: 14; Admin Dose 400 MG; Start 03/19/17 at 09:00 Metoclopramide HCl (Reglan) 10 mg Q6H PRN PO NAUSEA AND/OR VOMITING; Start 03/19 at 07:30 Multivitamins/ Minerals (Theragran-M) 1 tab DAILY PO Last administered on 10:14; Admin Dose 1 TAB; Start 03/19/17 at 09:00 Sertraline HCl 25 mg 25 mg QHS PO Last administered on 03/20/17 20:57; Admin Dose 25 MG; Start 03/19/17 at 21:00 Sodium Chloride 1,000 ml @ 80 mls/hr [id number] IV Last administered on 03/21/17 05:28; Admin Dose 80 MLS/HR; Start 03/19/17 at 10:00 Meropenem/Sodium Chloride (Merrem 1 Gm/50 ml (Pmx)) 50 ml @ 100 mls/hr Q12 IVPB Last administered on 03/20/17 20:53; Admin Dose 100 MLS/HR; Start 03/19/17 at 11:00 Insulin Aspart (Novolog Insulin Pen) NOVOLOG *MILD* ALGORI... Q4 SC Last administered on 03/21/17 01:57; Admin Dose 1 UNIT; Start 03/19/17 at 13:00 Digoxin (Digoxin) 0.125 mg Q2D@13 PO ; Start 03/21/17 at 13:00 Ondansetron HCl (Zofran Inj) 4 mg Q6H PRN IV NAUSEA AND/OR VOMITING; Start 03/19 at 10:30 Nitroglycerin (Nitroglycerin (Sl Tab) 0.4 Mg) 1 tab Q5M PRN SL CHEST PAIN; Start 03/19/17 at 10:30 Acetaminophen (Tylenol Tab) 650 mg Q6H PRN PO PAIN LEVEL 1-3 OR FEVER Last administered on 03/20/17 01:49; Admin Dose 650 MG; Start 03/19/17 at 10:30 Acetaminophen (Tylenol Supp) 650 mg Q6H PRN [place] PAIN LEVEL 1-3 OR FEVER; Start 03/19/17 at 10:30 Morphine Sulfate (morphine) 2 mg Q4H PRN IV PAIN LEVEL 7-10 Last administered on 03/21/17 05:32; Admin Dose 2 MG; Start 03/19/17 at 10:30 Docusate Sodium (Colace) 100 mg Q12H PRN PO CONSTIPATION; Start 03/19/17 at 10: 30 Magnesium Hydroxide (Milk Of Mag) 30 ml DAILY PRN PO CONSTIPATION; Start at 10:30 Bisacodyl (Dulcolax Supp) 10 mg DAILY PRN [place] CONSTIPATION; Start 03/19/17 at 10: 30 Miscellaneous Information 1 ea NOTE XX ; Start 03/19/17 at 10:30 Glucose (Glutose) 15 gm Q15M PRN PO DECREASED GLUCOSE; Start 03/19/17 at 10:30 Glucose (Glutose) 22.5 gm Q15M PRN PO DECREASED GLUCOSE; Start 03/19/17 at 10:30 Dextrose (D50w Syringe) 25 ml Q15M PRN IV DECREASED GLUCOSE; Start 03/19/17 at 10:30 Dextrose (D50w Syringe) 50 ml Q15M PRN IV DECREASED GLUCOSE; Start 03/19/17 at 10:30 Glucagon (Glucagen) 1 mg Q15M PRN IM DECREASED GLUCOSE; Start 03/19/17 at 10:30 Glucose (Glutose) 15 gm Q15M PRN BUCC[place] DECREASED GLUCOSE; Start 03/19/17 at 10: 30 Pantoprazole (Protonix Tab) 40 mg DAILY@06 PO Last administered on 03/21/17 05: 26; Admin Dose 40 MG; Start 03/21/17 at 06:00 Metoprolol Tartrate (Lopressor) 25 mg BID PO Last administered on 03/20/17 20: 57; Admin Dose 25 MG; Start 03/20/17 at 21:00 KUMAR CELESTIN Mar 21, 2017 08:59
--- NOTE | 2017-03-21 09:23 | RADRPT ---
PROCEDURE: X-ray fluoroscopy guidance CLINICAL INDICATION: ERCP RM 5 O.R. TECHNIQUE: Fluoroscopic guidance was utilized for intraoperative procedure. COMPARISON: None. FINDINGS: Fluoroscopic guidance was utilized for intraoperative procedure. 0.4 minutes of fluoroscopy time wa s utilized for the procedure. 4 x-ray images were obtained during the procedure. An appropriately positioned common bile duct stent is noted. IMPRESSION: X-ray fluoroscopic guidance utilized for intraoperative procedure. Successful placement of a common bile duct stent. Please see procedure note details. RPTAT: EE Physician Jlusi Date Time Electronically viewed and signed by Physician Jluis on 03/21/2017 09:22 /
[2017-03-21] MEDS ORDERED: FLUCONAZOLE 100 MG/NS (PMX) 50 ML IVPB SCH (11:00)
[2017-03-21] MEDS: MEROPENEM 1 GM/50ML(PMX) 50 ML IVPB SCH ×2 (11:19→23:38)
[2017-03-21] MEDS: DIGOXIN 0.125 MG TAB PO SCH (13:45)
--- NOTE | 2017-03-21 18:34 | PN ---
DATE: 03/21/2017 SUBJECTIVE DATA: At this time, she does have some abdominal chest pain more in the lower part of the chest and also upper abdominal discomfort. As it has been documented, she had a small myocardial infarction. She has got significant cholangitis. ERCP showed large stone in the common bile duct and because of the cardiac condition, stone was not planned to be removed at the time, immediate palliative thing was to put a stent so that we can relieve the blockage and release the cholangitis type of picture. OBJECTIVE DATA: ABDOMEN: Soft, nontender. LABORATORY: WBC count 8100, hemoglobin 10.6. The bilirubin 0.3, AST 39, ALT 148, ALK phos 163. Troponin is getting better. IMPRESSION: 1. Cholangitis is improving. 2. She had a small myocardial infarction. 3. She has got a choledocholithiasis. PLAN: Continue present management. Dictated By: Sha Rivers MD /[email or web address] /Document#: [id number] CC: Yaneth Vizcarra MD;*EndCC*
--- NOTE | 2017-03-21 19:36 | RADRPT ---
Vent Rate: 79 bpm RR Interval: 0 msec IA Interval: 0 msec QRS Duration: 72 msec QT Interval: 396 msec QTC Interval: 454 msec P-R-T Sheldon: 0 - 14 - 49 degrees Atrial fibrillation Low voltage QRS Cannot rule out Anteroseptal infarct , age undetermined Abnormal ECG Electronically Signed By: Geovanny Santoro [id number]
[2017-03-21] MEDS: SERTRALINE 50 MG TAB PO SCH (21:00)
[2017-03-21] MEDS: NYSTATIN 30 GM POWDER BTL TOP SCH (21:18)
[2017-03-21] MEDS: BALSAM PERU/CASTOR OIL 60 GM TUBE TOP SCH (21:18)
[2017-03-22] VITALS (11 sets, daily range): BP systolic 100–153; BP diastolic 57–96; PULSE 65–98; RESP 17–20
[2017-03-22] MEDS: SOD CHLORIDE 0.9% 1,000 ML IV SCH ×2 (00:42→13:00)
[2017-03-22] MEDS: morphine 2 MG INJ IV PRN ×2 (06:26→21:35)
[2017-03-22] MEDS: PANTOPRAZOLE (EC) 40 MG TAB PO SCH (06:26)
[2017-03-22] MEDS: INSULIN ASPART [NOVOLOG] 3 ML PEN SC SCH ×4 (07:30→21:00)
[2017-03-22] MEDS ORDERED: FLUCONAZOLE 100 MG/NS (PMX) 50 ML IVPB SCH (08:00)
[2017-03-22] MEDS: FERROUS SULFATE (EC) 325 MG TAB PO SCH (08:39)
[2017-03-22] MEDS: ASPIRIN (EC) 81 MG TAB PO SCH (08:39)
[2017-03-22] MEDS: NYSTATIN 30 GM POWDER BTL TOP SCH ×2 (08:40→21:17)
[2017-03-22] MEDS: MAGNESIUM OXIDE 400 MG TAB PO SCH (08:40)
[2017-03-22] MEDS: MULTIVITAMINS/MINERALS TAB PO SCH (08:40)
[2017-03-22] MEDS: METOPROLOL 25 MG TAB PO SCH ×2 (08:40→21:16)
[2017-03-22] MEDS: BALSAM PERU/CASTOR OIL 60 GM TUBE TOP SCH ×2 (08:41→21:17)
--- NOTE | 2017-03-22 08:49 | CONS ---
Date/Time of Note Date/Time of Note DATE: 03/22/17 TIME: 08:40 Assessment/Plan Assessment/Plan Chief Complaint/Hosp Course Impression: Elevated trop: likely type ii given hypotension sepsis in setting of known cad hx s/p cabg. trop was low level. no acute wma on echo. overall normal lvef. cont asa/statin/bb. will trend troponin. may need stress testing when acute issues resolve, no e/o of ongoing ischemia on ekg/troponin levels. CAD chronic s/p cabg: as above s/p AVR- normal fxn on previous echo Atrial fibrillation chronic- rate controlled with metoprolol. digoxin. not on anticoag chronically given immobility and fall history Pain- likely GI, no e/o ongoing ischemia on ekg/enzymes and likely had a demand ischemic event with low trop elevation. given retained stone and abd distention , would defer mgmt to GI Sepsis- resolved. bp stable off pressors. Problems: Consultation Date/Type/Reason Admit Date/Time Mar 19, 2017 at 04:35 Initial Consult Date 03/20/17 Type of Consultation: Cardiology Referring Provider: KUMAR CELESTIN 24 HR Interval Summary Free Text/Dictation pt with increased abd pain, no sob. denies any lightheadedness, dizziness. tele reviewed: afib rate controlled. Detailed Summary Eyes: no complaints ENT: no complaints Respiratory: no complaints Cardiovascular: no complaints Gastrointestinal: pain Genitourinary: no complaints Exam/Review of Systems Vital Signs Vitals Vital Signs Date Time Temp Pulse Resp B/P Pulse Ox O2 Delivery O2 Flow Rate FiO2 03/22/17 08:23 90 03/22/17 07:47 98.3 18 100/57 96 03/21/17 20:30 Nasal Cannula 2.0 Intake and Output 03/21/17 03/21/17 03/22/17 15:00 23:00 07:00 Intake Total 1530 ml 250 ml Output Total 490 ml 150 ml Balance 1040 ml 100 ml Exam Constitutional: alert, oriented Psych: nl mood/affect, no complaints Head: atraumatic, normocephalic Eyes: nl conjunctiva ENMT: nl external ears & nose, nl lips & teeth Neck: non-tender, supple, No jvd Respiratory: other crackles in base Cardiovascular: normal rate irregular rhythm, nl pulses, systolic murmur, No bruits, No edema, No gallop, No jugular venous distention (JVD), No rub Gastrointestinal: very distended, soft, tender Musculoskeletal: nl extremities to inspection Extremities: normal pulses 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, nl mental status, nl speech Skin: nl turgor Results Result Diagram: 03/21/17 0520 03/21/17 0520 Results 24 hrs Laboratory Tests Test 03/21/17 11:22 03/21/17 17:14 03/21/17 20:57 Bedside Glucose 128 105 119 Medications Medications Current Medications Aspirin (Halfprin) 81 mg DAILY PO Last administered on 03/21/17 09:06; Admin Dose 81 MG; Start 03/19/17 at 09:00 Ferrous Sulfate (Ferrous Sulfate (Ec)) 325 mg DAILY PO Last administered on 03/21 09:07; Admin Dose 325 MG; Start 03/19/17 at 09:00 Magnesium Oxide (Mag-Ox 400) 400 mg DAILY PO Last administered on 03/21/17 09: 06; Admin Dose 400 MG; Start 03/19/17 at 09:00 Metoclopramide HCl (Reglan) 10 mg Q6H PRN PO NAUSEA AND/OR VOMITING; Start 03/19 at 07:30 Multivitamins/ Minerals (Theragran-M) 1 tab DAILY PO Last administered on 09:06; Admin Dose 1 TAB; Start 03/19/17 at 09:00 Sertraline HCl 25 mg 25 mg QHS PO Last administered on 03/20/17 20:57; Admin Dose 25 MG; Start 03/19/17 at 21:00 Sodium Chloride 1,000 ml @ 80 mls/hr [id number] IV Last administered on 03/22/17 00:42; Admin Dose 80 MLS/HR; Start 03/19/17 at 10:00 Meropenem/Sodium Chloride (Merrem 1 Gm/50 ml (Pmx)) 50 ml @ 100 mls/hr Q12 IVPB Last administered on 03/21/17 23:38; Admin Dose 100 MLS/HR; Start 03/19/17 at 11:00 Digoxin (Digoxin) 0.125 mg Q2D@13 PO Last administered on 03/21/17 13:45; Admin Dose 0.125 MG; Start 03/21/17 at 13:00 Ondansetron HCl (Zofran Inj) 4 mg Q6H PRN IV NAUSEA AND/OR VOMITING; Start 03/19 at 10:30 Nitroglycerin (Nitroglycerin (Sl Tab) 0.4 Mg) 1 tab Q5M PRN SL CHEST PAIN; Start 03/19/17 at 10:30 Acetaminophen (Tylenol Tab) 650 mg Q6H PRN PO PAIN LEVEL 1-3 OR FEVER Last administered on 03/20/17 01:49; Admin Dose 650 MG; Start 03/19/17 at 10:30 Acetaminophen (Tylenol Supp) 650 mg Q6H PRN [place] PAIN LEVEL 1-3 OR FEVER; Start 03/19/17 at 10:30 Docusate Sodium (Colace) 100 mg Q12H PRN PO CONSTIPATION; Start 03/19/17 at 10: 30 Magnesium Hydroxide (Milk Of Mag) 30 ml DAILY PRN PO CONSTIPATION; Start at 10:30 Bisacodyl (Dulcolax Supp) 10 mg DAILY PRN [place] CONSTIPATION; Start 03/19/17 at 10: 30 Miscellaneous Information 1 ea NOTE XX ; Start 03/19/17 at 10:30 Glucose (Glutose) 15 gm Q15M PRN PO DECREASED GLUCOSE; Start 03/19/17 at 10:30 Glucose (Glutose) 22.5 gm Q15M PRN PO DECREASED GLUCOSE; Start 03/19/17 at 10:30 Dextrose (D50w Syringe) 25 ml Q15M PRN IV DECREASED GLUCOSE; Start 03/19/17 at 10:30 Dextrose (D50w Syringe) 50 ml Q15M PRN IV DECREASED GLUCOSE; Start 03/19/17 at 10:30 Glucagon (Glucagen) 1 mg Q15M PRN IM DECREASED GLUCOSE; Start 03/19/17 at 10:30 Glucose (Glutose) 15 gm Q15M PRN BUCCAL DECREASED GLUCOSE; Start 03/19/17 at 10: 30 Pantoprazole (Protonix Tab) 40 mg DAILY@06 PO Last administered on 03/22/17 06: 26; Admin Dose 40 MG; Start 03/21/17 at 06:00 Metoprolol Tartrate (Lopressor) 25 mg BID PO Last administered on 03/21/17 21: 17; Admin Dose 25 MG; Start 9/6/17 at 21:00 Morphine Sulfate 2 mg 2 mg Q3 PRN IV PAIN LEVEL 7-10 Last administered on 06:26; Admin Dose 2 MG; Start 03/21/17 at 09:00 Fluconazole/ Sodium Chloride (Diflucan 100 Mg/ NS (Pmx)) 50 ml @ 50 mls/hr Q24H IVPB ; Start 03/22/17 at 08:00 Nystatin (Nystatin Powder) 1 applic BID TOP Last administered on 03/21/17 21:18 ; Admin Dose 1 APPLIC; Start 03/21/17 at 21:00 ERASTO SANTOS Mar 22, 2017 08:49
[2017-03-22] MEDS ORDERED: FUROSEMIDE 20 MG INJ IV ONE (09:00)
[2017-03-22] MEDS: MEROPENEM 1 GM/50ML(PMX) 50 ML IVPB SCH ×2 (09:39→21:15)
[2017-03-22 10:45] LABS: BASOPHILS % 0.2 % (0.0-2.0); EOSINOPHILS # 0.5 10^3/ul (0.0-0.5); EOSINOPHILS % 3.5 % (0.0-7.0); HEMATOCRIT 37.9 % (37.0-47.0); HEMOGLOBIN 11.8 g/dl (12.0-16.0); LYMPHOCYTES # 2.3 10^3/ul (0.8-2.9); LYMPHOCYTES % 16.3 % (15.0-51.0); MEAN CORPUSCULAR HEMOGLOBIN 27.3 pg (29.0-33.0); MEAN CORPUSCULAR HGB CONC 31.1 g/dl (32.0-37.0); MEAN CORPUSCULAR VOLUME 87.7 fl (82.0-101.0); MEAN PLATELET VOLUME 10.9 fl (7.4-10.4); MONOCYTE # 1.1 10^3/ul (0.3-0.9); MONOCYTES % 8.1 % (0.0-11.0); NEUTROPHILS % 69.7 % (39.0-77.0); RED BLOOD COUNT 4.32 10^6/ul (4.20-5.40); RED CELL DISTRIBUTION WIDTH 15.7 % (11.5-14.5); WHITE BLOOD COUNT 13.9 10^3/ul (4.8-10.8)
[2017-03-22 10:49] LABS: PLATELET COUNT 166 10^3/UL (140-415); POSITIVE DIFF @See below
[2017-03-22] MEDS: FLUCONAZOLE 100 MG/NS (PMX) 50 ML IVPB SCH (10:57)
[2017-03-22 11:07] LABS: MAGNESIUM 2.2 mg/dl (1.7-2.5)
[2017-03-22 11:08] LABS: MAGNESIUM 2.2 mg/dl (1.7-2.5); PHOSPHORUS 2.7 mg/dl (2.5-4.9)
[2017-03-22 11:09] LABS: CALCIUM 8.8 mg/dl (8.4-10.2); CREATININE 0.88 mg/dl (0.44-1.00); POTASSIUM 4.3 mmol/L (3.5-5.1)
[2017-03-22 11:39] LABS: THYROID STIMULATING HORMONE 4.1 MIU/L (0.465-4.680)
--- NOTE | 2017-03-22 13:37 | PN ---
Date/Time of Note Date/Time of Note DATE: 03/22/17 TIME: 12:45 Assessment/Plan VTE Prophylaxis VTE Prophylaxis Intervention: SCD's Lines/Catheters [facility]from [facility] Saline Lock Urinary Cath still in place: Yes Reason Cath still needed: other (indicate) (For urine output monitoring, can be discontinued in the next couple of days if patient keeps improving) Assessment/Plan Assessment/Plan 81 years old female with: 1. Choledocholithiasis, likely ascending cholangitis with sepsis. Getting enzymes within normal, LFTs have been improving, LFTs pending today. Continue IV antibiotics and s/p ERCP days ago with placement of a urinary stent , still planing of pain, discussed with Dr. Rivers and family, patient's daughter wants the patient at [facility], lateral transfer will be arranged. Change pain medication to tramadol. Patient on mechanical soft. Blood cultures no growth to date. 2. Coronary artery disease, status post bypass surgery and aortic valve replacement. Status post likely demand ischemia setting of sepsis. Troponin back down to normal. Appreciate cardiology evaluation and recommendations. Continue current medications. Patient back on aspirin. 3. Chronic atrial fibrillation, currently in sinus rhythm, continue digoxin, rate controlled. Continue digoxin. She is back on beta-blockers. 4. Diabetes mellitus: Sliding scale insulin, A1c 6.0. 5. Hypertension: Resolved hypotension, off pressors x3 days now and back on Bblock. Blood pressure stable. Prophylaxis: Protonix for GI prophylaxis, SCDs for DVT prophylaxis Disposition: Lateral transfer to [facility] and family preference, when bed available. Subjective 24 Hr Interval Summary Free Text/Dictation According to family member, patient was having pain this morning not relieved with pain. However based on the clinical is unlikely the patient was having that severe with pain, she has been eating every meal and not having pain. We will change her pain medication to tramadol at this point and discontinue narcotics. He is status post biliary stent for a large biliary stone. According to GI they are unable to do a prolonged procedure due to the fact that the patient had a recent small acute CA/demand ischemia in setting of sepsis. Patient does have a biliary stent in place currently to avoid further obstruction. Her laboratory data are much improved LFTs are improved and bilirubin back to normal. She is on meropenem for gram-negative rods UTI Pseudomonas and E. coli. Blood cultures are negative. She is clinically much improved. However the family is insisting to have the patient at [facility] for further care. Since his per family preferences this is a lateral transfer. She does have an accepting physician. She will be transferred when a bed is available. Case management is involved. Exam/Review of Systems Vital Signs Vitals Vital Signs Date Time Temp Pulse Resp B/P Pulse Ox O2 Delivery O2 Flow Rate FiO2 03/22/17 12:28 83 03/22/17 07:47 98.3 18 100/57 96 03/21/17 20:30 Nasal Cannula 2.0 Intake and Output 03/21/17 03/21/17 03/22/17 15:00 23:00 07:00 Intake Total 1530 ml 250 ml Output Total 490 ml 150 ml Balance 1040 ml 100 ml Exam Constitutional: alert, oriented, well developed Respiratory: clear to auscultation, normal air movement, other (To have some upper airway congestion) Cardiovascular: nl pulses, regular rate and rhythm Gastrointestinal: non-tender, other (Currently eating mechanical soft diet with no epigastric pain.), soft Musculoskeletal: nl extremities to inspection, nl gait and stance Extremities: normal pulses, other (Trace edema, no clubbing or cyanosis) Neurological: CALL WORKER II-XII intact, nl mental status, nl speech, other (At baseline, patient mostly does not ambulate much due to instability.) Results Result Diagram: 03/22/17 1006 03/22/17 1006 Results 24 hrs Laboratory Tests Test 03/21/17 17:14 03/21/17 20:57 03/22/17 08:34 03/22/17 10:06 Bedside Glucose 105 119 83 White Blood Count 13.9 #H Red Blood Count 4.32 Hemoglobin 11.8 L Hematocrit 37.9 Mean Corpuscular Volume 87.7 Mean Corpuscular Hemoglobin 27.3 L Mean Corpuscular Hemoglobin Concent 31.1 L Red Cell Distribution Width 15.7 H Platelet Count 166 # Mean Platelet Volume 10.9 H Neutrophils % 69.7 Lymphocytes % 16.3 Monocytes % 8.1 Eosinophils % 3.5 Basophils % 0.2 Nucleated Red Blood Cells % 0.0 Neutrophils # (Manual) 9.7 H Lymphocytes # 2.3 Monocytes # 1.1 H Eosinophils # 0.5 Basophils # 0.0 Nucleated Red Blood Cells # 0.0 Sodium Level 140 Potassium Level 4.3 Chloride Level 113 H Carbon Dioxide Level 21 Anion Gap 10 Blood Urea Nitrogen 28 H Creatinine 0.88 Glucose Level 84 # Calcium Level 8.8 Phosphorus Level 2.7 Magnesium Level 2.2 Amylase Level 89 Lipase 95 Thyroid Stimulating Hormone (TSH) 4.100 Test 03/22/17 11:39 Bedside Glucose 81 Medications Medications Current Medications Aspirin (Halfprin) 81 mg DAILY PO Last administered on 03/22/17 08:39; Admin Dose 81 MG; Start 03/19/17 at 09:00 Ferrous Sulfate (Ferrous Sulfate (Ec)) 325 mg DAILY PO Last administered on 03/22 08:39; Admin Dose 325 MG; Start 03/19/17 at 09:00 Magnesium Oxide (Mag-Ox 400) 400 mg DAILY PO Last administered on 03/22/17 08: 40; Admin Dose 400 MG; Start 03/19/17 at 09:00 Metoclopramide HCl (Reglan) 10 mg Q6H PRN PO NAUSEA AND/OR VOMITING; Start 03/19 at 07:30 Multivitamins/ Minerals (Theragran-M) 1 tab DAILY PO Last administered on 08:40; Admin Dose 1 TAB; Start 03/19/17 at 09:00 Sertraline HCl 25 mg 25 mg QHS PO Last administered on 03/20/17 20:57; Admin Dose 25 MG; Start 03/19/17 at 21:00 Sodium Chloride 1,000 ml @ 80 mls/hr [id number] IV Last administered on 03/22/17 00:42; Admin Dose 80 MLS/HR; Start 03/19/17 at 10:00 Meropenem/Sodium Chloride (Merrem 1 Gm/50 ml (Pmx)) 50 ml @ 100 mls/hr Q12 IVPB Last administered on 03/22/17 09:39; Admin Dose 100 MLS/HR; Start 03/19/17 at 11:00 Digoxin (Digoxin) 0.125 mg Q2D@13 PO Last administered on 03/21/17 13:45; Admin Dose 0.125 MG; Start 03/21/17 at 13:00 Ondansetron HCl (Zofran Inj) 4 mg Q6H PRN IV NAUSEA AND/OR VOMITING; Start 03/19 at 10:30 Nitroglycerin (Nitroglycerin (Sl Tab) 0.4 Mg) 1 tab Q5M PRN SL CHEST PAIN; Start 03/19/17 at 10:30 Acetaminophen (Tylenol Tab) 650 mg Q6H PRN PO PAIN LEVEL 1-3 OR FEVER Last administered on 03/20/17 01:49; Admin Dose 650 MG; Start 03/19/17 at 10:30 Acetaminophen (Tylenol Supp) 650 mg Q6H PRN [place] PAIN LEVEL 1-3 OR FEVER; Start 03/19/17 at 10:30 Docusate Sodium (Colace) 100 mg Q12H PRN PO CONSTIPATION; Start 03/19/17 at 10: 30 Magnesium Hydroxide (Milk Of Mag) 30 ml DAILY PRN PO CONSTIPATION; Start at 10:30 Bisacodyl (Dulcolax Supp) 10 mg DAILY PRN [place] CONSTIPATION; Start 03/19/17 at 10: 30 Miscellaneous Information 1 ea NOTE XX ; Start 03/19/17 at 10:30 Glucose (Glutose) 15 gm Q15M PRN PO DECREASED GLUCOSE; Start 03/19/17 at 10:30 Glucose (Glutose) 22.5 gm Q15M PRN PO DECREASED GLUCOSE; Start 03/19/17 at 10:30 Dextrose (D50w Syringe) 25 ml Q15M PRN IV DECREASED GLUCOSE; Start 03/19/17 at 10:30 Dextrose (D50w Syringe) 50 ml Q15M PRN IV DECREASED GLUCOSE; Start 03/19/17 at 10:30 Glucagon (Glucagen) 1 mg Q15M PRN IM DECREASED GLUCOSE; Start 03/19/17 at 10:30 Glucose (Glutose) 15 gm Q15M PRN BUCCAL DECREASED GLUCOSE; Start 03/19/17 at 10: 30 Pantoprazole (Protonix Tab) 40 mg DAILY@06 PO Last administered on 03/22/17 06: 26; Admin Dose 40 MG; Start 03/21/17 at 06:00 Metoprolol Tartrate (Lopressor) 25 mg BID PO Last administered on 03/22/17 08: 40; Admin Dose 25 MG; Start 03/20/17 at 21:00 Morphine Sulfate (morphine) 2 mg Q3 PRN IV PAIN LEVEL 7-10 Last administered on 03/22/17 06:26; Admin Dose 2 MG; Start 03/21/17 at 09:00 Nystatin 1 applic 1 applic BID TOP Last administered on 03/22/17 08:40; Admin Dose 1 APPLIC; Start 03/21/17 at 21:00 Fluconazole/ Sodium Chloride (Diflucan 100 Mg/ NS (Pmx)) 50 ml @ 50 mls/hr Q24H IVPB Last administered on 03/22/17 10:57; Admin Dose 50 MLS/HR; Start 03/22/17 at 10:00 KUMAR CELESTIN Mar 22, 2017 13:24
--- NOTE | 2017-03-22 13:40 | PDOCDIS ---
Discharge Instructions CONDITION Patient Condition: Stable HOME CARE INSTRUCTIONS: Diet Instructions: Low Fat /Cholesterol (Diabetic)Special Diet: Mechanical soft diet with nectar thick liquid ACTIVITY: Activity Restrictions: Slowly Increase Activity FOLLOW UP/APPOINTMENTS Follow-up Plan Follow-up with [facility] accepting physician, if needed patient may need to be followed by cardiology and also gastroenterology KUMAR CELESTIN Mar 22, 2017 13:40
--- NOTE | 2017-03-22 13:59 | RADRPT ---
PROCEDURE: XR, Chest. CLINICAL INDICATION: Cough. TECHNIQUE: AP chest COMPARISON: Chest, 03/19/2017. FINDINGS: There is no acute infiltrate in the lungs. No pleural effusion. The heart is somewhat enlarged wit h mild pulmonary venous congestion. There is status post CABG. IMPRESSION: 1. Mild cardiomegaly with mild pulmonary venous congestion. Status post CABG. RPTAT: GG .Luisito Wright MD, MD Date Time Electronically viewed and signed by .Luisito Wright MD, MD on 03/22/2017 13:58 .Y/
[2017-03-22 14:08] LABS: ALBUMIN 3.2 g/dl (3.3-4.9); BILIRUBIN,INDIRECT 0.5 mg/dl (0-1.1); BILIRUBIN,TOTAL 0.5 mg/dl (0.2-1.3); TOTAL PROTEIN 6.7 g/dl (6.1-8.1)
[2017-03-22] MEDS ORDERED: NA PHOSPHATE/BIPHOS 133 ML ENEMA PR ONE (19:30)
[2017-03-22] MEDS ORDERED: BARIUM SULF 2% 450 ML BTL (BERRY SMOOTHIE) PO ONE (19:30)
[2017-03-22] MEDS: SERTRALINE 50 MG TAB PO SCH (21:16)
--- NOTE | 2017-03-22 21:27 | RADRPT ---
PROCEDURE: CT ABDOMEN AND PELVIS WITHOUT CONTRAST: CLINICAL INDICATION: 81 years of age, female , abdominal pain. COMPARISON: CTA abdomen pelvis October 09, 2015 TECHNIQUE: CT of the abdomen and pelvis was performed without intravenous contrast. Oral contrast wa s not administered prior to the examination. Coronal and sagittal reformatted images were obtained from the axial source images. Images were revi ewed on a high-resolution PACS workstation. Dose information: Based on a 32 cm phantom, the estimated radiation dose (CTDIvol mGy) for each seri es in this exam is 22.6. The estimated cumulative dose (DLP mGy-cm) is 1109. One or more of the following dose reduction techniques were used: - Automated exposure control. - Adjustment of the mA and/or kV according to patient size. - Use of iterative reconstruction technique. FINDINGS: In the absence of intravenous contrast, the study constitutes a limited assessment of the solid orga ns, bowel and vessels. LUNG BASES: Severe four-vessel coronary artery calcification and there is also calcification of the aortic valve. Ascending aortic aneurysm measuring 5.1 cm is incompletely imaged but unchanged from M 2015 where imaged. Small bilateral pleural effusions with bilateral dependent atelectasis. ABDOMEN/PELVIS: Liver: Normal noncontrast appearance. There is focal eventration of the right diaphragm that contain s superior right lobe of liver. Gallbladder: Surgically absent Bile ducts: There is a common bile duct stent in good position. Pneumobilia in keeping with stent pa tency. Spleen: Normal noncontrast appearance. Pancreas: Atrophic Adrenal glands: Normal noncontrast appearance. Kidneys and ureters: Bilateral renal parenchymal hypodensities likely represent cysts. 7.5 cm exophy tic cyst lower pole right kidney is mildly complex demonstrates mild wall calcification. It is uncha nged from CT performed October 09, 2015. Negative for urinary calculi or hydronephrosis. Aorta and IVC: Atherosclerotic calcification and tortuosity aorta and iliac vessels. Negative for ab dominal aortic aneurysm. Lymph nodes: Normal noncontrast appearance. Gastrointestinal tract: Mildly prominent loops of small bowel may indicate dysmotility. Negative for evidence of bowel obstruction. Appendix: Normal Bladder: Decompressed with Bonilla catheter. Pelvic Organs: The uterus and adnexa are unremarkable. Calcification at the uterine fundus likely re presents a small degenerated fibroid. Peritoneal cavity: Small-volume ascites in the upper and lower abdomen. Negative for free intraperi toneal air. Abdominal wall: There is diffuse body wall edema. There is marked atrophy of the abdominal wall musc ulature with laxity and protrusion of abdominal contents. BONES: Musculoskeletal: There is a right hip replacement with a long stem femoral dania transfixed by a cercl age wires and a side plate. There is heterotopic ossification around the right hip. Bones are osteop enic. There are degenerative changes in the lower lumbar spine. Status post vertebroplasty at L1 and L2 with intrabody cement. There is partial collapse of the T12 and L3 vertebra from osteoporosis. N o acute fractures are identified. IMPRESSION: Small bilateral pleural effusions with bilateral dependent atelectasis. Severe coronary artery calcification. Aortic valve calcification. Ascending aortic aneurysm measurin g 5.1 cm is incompletely imaged but appears unchanged from October 09, 2015 where imaged. Small volume ascites and body wall edema. Common bile duct stent in good position. Pneumobilia is in keeping with stent patency. 7.5 cm mildly complex cyst lower pole right kidney is unchanged from October 09, 2015. Negative for evidence of acute abnormality to explain abdominal pain. RPTAT: HCTS Physician Marcelino Date Time Electronically viewed and signed by Physician Marcelino on 03/22/2017 21:27 /
--- NOTE | 2017-03-22 21:47 | CONS ---
DATE OF ADMISSION: 03/19/2017 DATE OF CONSULTATION: 03/22/2017 CHIEF COMPLAINT: The patient complains of upper abdominal pain, which she has been having since prior to the admission. She is alert and she says she is in pain, but she is much better. She has been passing gas. She had a small bowel movement today. PHYSICAL EXAMINATION: GENERAL: Patient is an 81-year-old, [place] female, who at this time is alert. She is not in distress. VITAL SIGNS: Temperature 97.4, blood pressure 141/61. HEART: Normal heart sounds. LUNGS: Normal breath sounds. ABDOMEN: Distended, minimal epigastric tenderness. RECTAL: Showed empty rectum. LABORATORY: Workup shows a WBC count 13,900, hemoglobin 11.8, bilirubin 0.5, AST 87, ALT 94, alk phos 167. An ERCP was performed yesterday, which was a very quick procedure because the patient had sustained a myocardial infarction, and because of that, too much time was not spent doing the ERCP. The immediate goal was to put a stent into the bile duct and terminate the procedure, and that was what was done. CLINICAL IMPRESSION: Patient complains of abdominal pain. Rule out pain caused by the common bile duct stone, although it is probably unlikely. She does have cholangitis. Reason for the elevated white count is probably cholangitis. Rule out pneumonia. I doubt if we are dealing with any bowel obstruction. PLAN: At this time recommend CAT scan of the abdomen and continue antibiotic. There is a plan by the family to take the patient to [facility]. If that is what they wish, it will be okay. Dictated By: Sha Rivers MD /[email or web address] /Document#: [id number] CC: Chuck Chamberlain MD;*[facility]*
[2017-03-23] VITALS (11 sets, daily range): BP systolic 132–158; BP diastolic 69–103; PULSE 73–93; RESP 20
[2017-03-23] MEDS: PANTOPRAZOLE (EC) 40 MG TAB PO SCH (06:45)
[2017-03-23] MEDS: morphine 2 MG INJ IV PRN ×3 (06:48→20:21)
[2017-03-23] MEDS: INSULIN ASPART [NOVOLOG] 3 ML PEN SC SCH ×3 (08:36→17:35)
[2017-03-23 08:58] LABS: BASOPHILS % 0.2 % (0.0-2.0); EOSINOPHILS # 0.6 10^3/ul (0.0-0.5); EOSINOPHILS % 4.5 % (0.0-7.0); HEMOGLOBIN 11.7 g/dl (12.0-16.0); LYMPHOCYTES # 1.9 10^3/ul (0.8-2.9); LYMPHOCYTES % 15.3 % (15.0-51.0); MEAN CORPUSCULAR HEMOGLOBIN 27.5 pg (29.0-33.0); MEAN CORPUSCULAR HGB CONC 31.6 g/dl (32.0-37.0); MEAN CORPUSCULAR VOLUME 86.9 fl (82.0-101.0); MEAN PLATELET VOLUME 9.4 fl (7.4-10.4); MONOCYTE # 0.8 10^3/ul (0.3-0.9); MONOCYTES % 6.7 % (0.0-11.0); NEUTROPHILS % 70.5 % (39.0-77.0); PLATELET COUNT 196 10^3/UL (140-415); RED BLOOD COUNT 4.26 10^6/ul (4.20-5.40); RED CELL DISTRIBUTION WIDTH 14.8 % (11.5-14.5); WHITE BLOOD COUNT 12.6 10^3/ul (4.8-10.8)
[2017-03-23] MEDS: FERROUS SULFATE (EC) 325 MG TAB PO SCH (09:21)
[2017-03-23] MEDS: MAGNESIUM OXIDE 400 MG TAB PO SCH (09:21)
[2017-03-23] MEDS: MEROPENEM 1 GM/50ML(PMX) 50 ML IVPB SCH (09:21)
[2017-03-23] MEDS: MULTIVITAMINS/MINERALS TAB PO SCH (09:21)
[2017-03-23] MEDS: METOPROLOL 25 MG TAB PO SCH ×2 (09:22→19:36)
[2017-03-23] MEDS: ASPIRIN (EC) 81 MG TAB PO SCH (09:22)
[2017-03-23] MEDS: NYSTATIN 30 GM POWDER BTL TOP SCH (09:23)
[2017-03-23 09:25] LABS: MAGNESIUM 1.8 mg/dl (1.7-2.5)
[2017-03-23 09:26] LABS: ALBUMIN 3.1 g/dl (3.3-4.9); ALBUMIN/GLOBULIN RATIO 0.91; BILIRUBIN,INDIRECT 0.9 mg/dl (0-1.1); BILIRUBIN,TOTAL 0.9 mg/dl (0.2-1.3); CALCIUM 8.9 mg/dl (8.4-10.2); CREATININE 0.91 mg/dl (0.44-1.00); POTASSIUM 3.6 mmol/L (3.5-5.1); TOTAL PROTEIN 6.5 g/dl (6.1-8.1)
[2017-03-23] MEDS: FLUCONAZOLE 100 MG/NS (PMX) 50 ML IVPB SCH (11:35)
[2017-03-23] MEDS: BALSAM PERU/CASTOR OIL 60 GM TUBE TOP SCH (11:39)
--- NOTE | 2017-03-23 12:30 | PN ---
Date/Time of Note Date/Time of Note DATE: 03/23/17 TIME: 12:27 Assessment/Plan VTE Prophylaxis VTE Prophylaxis Intervention: other Lines/Catheters IV Catheter Type (from Nrsg): Saline Lock Urinary Cath still in place: Yes (skin breakdown) Reason Cath still needed: skin wounds contaminated by urine Assessment/Plan Assessment/Plan 1. gi: cholangitis, cont current abx, still with pain, cont to monitor, cont abx 2. cards: troponin leak related to demand and sepsis (b) aortic valve replacement (c) ascending aortic aneurysm, stable 3. possible transfer t [facility] Subjective 24 Hr Interval Summary Free Text/Dictation still complaining of abdominal pain with radiation to L shoulder some nausea but tolerating some diet Exam/Review of Systems Vital Signs Vitals Vital Signs Date Time Temp Pulse Resp B/P Pulse Ox O2 Delivery O2 Flow Rate FiO2 03/23/17 12:04 74 03/23/17 11:22 98.0 20 145/82 99 03/23/17 08:33 Nasal Cannula 2.0 Intake and Output 03/22/17 03/22/17 03/23/17 15:00 23:00 07:00 Intake Total 50 ml 300 ml Output Total 1500 ml Balance 50 ml -1200 ml Exam nad, soft distended,. tender ctab, rrr Results Result Diagram: 03/23/17 0841 03/23/17 0841 Results 24 hrs Laboratory Tests Test 03/22/17 17:37 03/22/17 21:08 03/23/17 08:35 03/23/17 08:41 Bedside Glucose 101 117 111 White Blood Count 12.6 H Red Blood Count 4.26 Hemoglobin 11.7 L Hematocrit 37.0 Mean Corpuscular Volume 86.9 Mean Corpuscular Hemoglobin 27.5 L Mean Corpuscular Hemoglobin Concent 31.6 L Red Cell Distribution Width 14.8 H Platelet Count 196 Mean Platelet Volume 9.4 Neutrophils % 70.5 Lymphocytes % 15.3 Monocytes % 6.7 Eosinophils % 4.5 Basophils % 0.2 Nucleated Red Blood Cells % 0.0 Neutrophils # (Manual) 8.9 H Lymphocytes # 1.9 Monocytes # 0.8 Eosinophils # 0.6 H Basophils # 0.0 Nucleated Red Blood Cells # 0.0 Sodium Level 143 Potassium Level 3.6 Chloride Level 110 Carbon Dioxide Level 27 Anion Gap 10 Blood Urea Nitrogen 24 H Creatinine 0.91 Glucose Level 120 Calcium Level 8.9 Phosphorus Level 3.0 Magnesium Level 1.8 Total Bilirubin 0.9 Direct Bilirubin 0.00 Indirect Bilirubin 0.9 Aspartate Amino Transf (AST/SGOT) 23 Alanine Aminotransferase (ALT/SGPT) 80 H Alkaline Phosphatase 146 H Total Protein 6.5 Albumin 3.1 L Globulin 3.40 H Albumin/Globulin Ratio 0.91 Amylase Level 74 Lipase 78 Medications Medications Current Medications Aspirin (Halfprin) 81 mg DAILY PO Last administered on 03/23/17 09:22; Admin Dose 81 MG; Start 03/19/17 at 09:00 Ferrous Sulfate (Ferrous Sulfate (Ec)) 325 mg DAILY PO Last administered on 03/23 09:21; Admin Dose 325 MG; Start 03/19/17 at 09:00 Magnesium Oxide (Mag-Ox 400) 400 mg DAILY PO Last administered on 03/23/17 09: 21; Admin Dose 400 MG; Start 03/19/17 at 09:00 Metoclopramide HCl (Reglan) 10 mg Q6H PRN PO NAUSEA AND/OR VOMITING; Start 03/19 at 07:30 Multivitamins/ Minerals (Theragran-M) 1 tab DAILY PO Last administered on 09:21; Admin Dose 1 TAB; Start 03/19/17 at 09:00 Sertraline HCl 25 mg 25 mg QHS PO Last administered on 03/22/17 21:16; Admin Dose 25 MG; Start 03/19/17 at 21:00 Meropenem/Sodium Chloride (Merrem 1 Gm/50 ml (Pmx)) 50 ml @ 100 mls/hr Q12 IVPB Last administered on 03/23/17 09:21; Admin Dose 100 MLS/HR; Start 03/19/17 at 11:00 Digoxin (Digoxin) 0.125 mg Q2D@13 PO Last administered on 03/21/17 13:45; Admin Dose 0.125 MG; Start 03/21/17 at 13:00 Ondansetron HCl (Zofran Inj) 4 mg Q6H PRN IV NAUSEA AND/OR VOMITING; Start 03/19 at 10:30 Nitroglycerin (Nitroglycerin (Sl Tab) 0.4 Mg) 1 tab Q5M PRN SL CHEST PAIN; Start 03/19/17 at 10:30 Acetaminophen (Tylenol Tab) 650 mg Q6H PRN PO PAIN LEVEL 1-3 OR FEVER Last administered on 03/20/17 01:49; Admin Dose 650 MG; Start 03/19/17 at 10:30 Acetaminophen (Tylenol Supp) 650 mg Q6H PRN IN PAIN LEVEL 1-3 OR FEVER; Start 03/19/17 at 10:30 Docusate Sodium (Colace) 100 mg Q12H PRN PO CONSTIPATION; Start 03/19/17 at 10: 30 Magnesium Hydroxide (Milk Of Mag) 30 ml DAILY PRN PO CONSTIPATION; Start at 10:30 Bisacodyl (Dulcolax Supp) 10 mg DAILY PRN IN CONSTIPATION; Start 03/19/17 at 10: 30 Miscellaneous Information 1 ea NOTE XX ; Start 03/19/17 at 10:30 Glucose (Glutose) 15 gm Q15M PRN PO DECREASED GLUCOSE; Start 03/19/17 at 10:30 Glucose (Glutose) 22.5 gm Q15M PRN PO DECREASED GLUCOSE; Start 03/19/17 at 10:30 Dextrose (D50w Syringe) 25 ml Q15M PRN IV DECREASED GLUCOSE; Start 03/19/17 at 10:30 Dextrose (D50w Syringe) 50 ml Q15M PRN IV DECREASED GLUCOSE; Start 03/19/17 at 10:30 Glucagon (Glucagen) 1 mg Q15M PRN IM DECREASED GLUCOSE; Start 03/19/17 at 10:30 Glucose (Glutose) 15 gm Q15M PRN BUCCAL DECREASED GLUCOSE; Start 03/19/17 at 10: 30 Pantoprazole (Protonix Tab) 40 mg DAILY@06 PO Last administered on 03/23/17 06: 45; Admin Dose 40 MG; Start 03/21/17 at 06:00 Metoprolol Tartrate (Lopressor) 25 mg BID PO Last administered on 03/23/17 09: 22; Admin Dose 25 MG; Start 03/20/17 at 21:00 Morphine Sulfate (morphine) 2 mg Q3 PRN IV PAIN LEVEL 7-10 Last administered on 03/23/17 11:36; Admin Dose 2 MG; Start 03/21/17 at 09:00 Nystatin 1 applic 1 applic BID TOP Last administered on 03/23/17 09:23; Admin Dose 1 APPLIC; Start 03/21/17 at 21:00 Fluconazole/ Sodium Chloride (Diflucan 100 Mg/ NS (Pmx)) 50 ml @ 50 mls/hr Q24H IVPB Last administered on 03/23/17t 11:35; Admin Dose 50 MLS/HR; Start 03/22/17 at 10:00 ANDRESSA BEY MD Mar 23, 2017 12:30
[2017-03-23] MEDS: DIGOXIN 0.125 MG TAB PO SCH (12:45)
--- NOTE | 2017-03-23 14:17 | PN ---
DATE: 03/23/2017 SUBJECTIVE DATA: The patient was seen by me because of abdominal pain and a common bile duct stone. I performed the ERCP several days ago. She has a large CBD stone and because of that, very quick CBD stent was placed to facilitate drainage of the bile. Stone was found in the common bile duct but I did not remove the stone because stone was large because she had a myocardial infarction, I did not want to subject her for a prolonged therapy to remove the stone and subsequently as I mentioned, CBD stent was placed and the ERCP was terminated. Now, patient continues to have abdominal pain. Because of this, I am examining the patient. OBJECTIVE DATA: GENERAL: On examination, she is alert. VITAL SIGNS: She is afebrile. ABDOMEN: Soft. LABORATORY AND DIAGNOSTIC DATA: I ordered a CAT scan of the abdomen done to see why she has abdominal distention. The CAT scan of the abdomen shows evidence of a CBD stent in place. The stone noted in the right hepatic duct. IMPRESSION: 1. Persistent abdominal pain. 2. Left chest pain. Could be due to myocardial infarction and I do not believe common duct stone and the stent in the place can be causing abdominal pain. However, upon discussion with the family, family wants to take the patient to [facility] because patient had a cholecystectomy there and that is the reason they want to take her back to [facility]. PLAN: Continue present management until she goes to [facility]. Dictated By: Sha Rivers MD /[email or web address] /Document#: [id number]
--- NOTE | 2017-03-23 14:31 | CONS ---
Date/Time of Note Date/Time of Note DATE: 03/23/17 TIME: 14:29 Assessment/Plan Assessment/Plan Additional Assessment/Plan Impression: Elevated trop: This is a low grade and expected elevation in this pt with known CAD and sepsis. The level is low grade and without ECG changes and normal Echo. Would proceed with required procedures for her active GI issues with CBD stone and infection. Continue with medical mgmt of CAD. CAD chronic s/p cabg: as above s/p AVR- normal fxn on previous echo Atrial fibrillation chronic- rate controlled with metoprolol. digoxin. not on anticoag chronically given immobility and fall history Pain- likely GI, no e/o ongoing ischemia on ekg/enzymes and likely had a demand ischemic event with low trop elevation. given retained stone and abd distention , would defer mgmt to GI Sepsis- resolved. bp stable off pressors. Consultation Date/Type/Reason Admit Date/Time Mar 19, 2017 at 04:35 Initial Consult Date 03/20/17 Type of Consultation: Cardiology Referring Provider: KUMAR CELESTIN 24 HR Interval Summary Free Text/Dictation Still with abdominal pain with deep breath and minimal movement. Ate small meal today and had a BM after enema. Exam/Review of Systems Vital Signs Vitals Vital Signs Date Time Temp Pulse Resp B/P Pulse Ox O2 Delivery O2 Flow Rate FiO2 03/23/17 12:04 74 03/23/17 11:22 98.0 20 145/82 99 03/23/17 08:33 Nasal Cannula 2.0 Intake and Output 03/22/17 03/22/17 03/23/17 15:00 23:00 07:00 Intake Total 50 ml 300 ml Output Total 1500 ml Balance 50 ml -1200 ml Exam Constitutional: alert, oriented, well developed Psych: no complaints Head: atraumatic, normocephalic Eyes: nl conjunctiva ENMT: nl external ears & nose Neck: supple, No jvd Respiratory: clear to auscultation Cardiovascular: irregular rhythm, other (no S3, 2/6 HSM) Gastrointestinal: distended (and tympanic), other (mildly tender) Musculoskeletal: nl extremities to inspection Neurological: EMBRYOLOGY PROFESSOR II-XII intact Skin: diaphoresis (mild) Results Result Diagram: 03/23/17 0841 03/23/17 0841 Results 24 hrs Laboratory Tests Test 03/22/17 17:37 03/22/17 21:08 03/23/17 08:35 03/23/17 08:41 Bedside Glucose 101 117 111 White Blood Count 12.6 H Red Blood Count 4.26 Hemoglobin 11.7 L Hematocrit 37.0 Mean Corpuscular Volume 86.9 Mean Corpuscular Hemoglobin 27.5 L Mean Corpuscular Hemoglobin Concent 31.6 L Red Cell Distribution Width 14.8 H Platelet Count 196 Mean Platelet Volume 9.4 Neutrophils % 70.5 Lymphocytes % 15.3 Monocytes % 6.7 Eosinophils % 4.5 Basophils % 0.2 Nucleated Red Blood Cells % 0.0 Neutrophils # (Manual) 8.9 H Lymphocytes # 1.9 Monocytes # 0.8 Eosinophils # 0.6 H Basophils # 0.0 Nucleated Red Blood Cells # 0.0 Sodium Level 143 Potassium Level 3.6 Chloride Level 110 Carbon Dioxide Level 27 Anion Gap 10 Blood Urea Nitrogen 24 H Creatinine 0.91 Glucose Level 120 Calcium Level 8.9 Phosphorus Level 3.0 Magnesium Level 1.8 Total Bilirubin 0.9 Direct Bilirubin 0.00 Indirect Bilirubin 0.9 Aspartate Amino Transf (AST/SGOT) 23 Alanine Aminotransferase (ALT/SGPT) 80 H Alkaline Phosphatase 146 H Total Protein 6.5 Albumin 3.1 L Globulin 3.40 H Albumin/Globulin Ratio 0.91 Amylase Level 74 Lipase 78 Test 03/23/17 12:44 Bedside Glucose 120 Medications Medications Current Medications Aspirin (Halfprin) 81 mg DAILY PO Last administered on 03/23/17 09:22; Admin Dose 81 MG; Start 03/19/17 at 09:00 Ferrous Sulfate (Ferrous Sulfate (Ec)) 325 mg DAILY PO Last administered on 03/23 09:21; Admin Dose 325 MG; Start 03/19/17 at 09:00 Magnesium Oxide (Mag-Ox 400) 400 mg DAILY PO Last administered on 03/23/17 09: 21; Admin Dose 400 MG; Start 03/19/17 at 09:00 Metoclopramide HCl (Reglan) 10 mg Q6H PRN PO NAUSEA AND/OR VOMITING; Start 03/19 at 07:30 Multivitamins/ Minerals (Theragran-M) 1 tab DAILY PO Last administered on 09:21; Admin Dose 1 TAB; Start 03/19/17 at 09:00 Sertraline HCl 25 mg 25 mg QHS PO Last administered on 03/22/17 21:16; Admin Dose 25 MG; Start 03/19/17 at 21:00 Meropenem/Sodium Chloride (Merrem 1 Gm/50 ml (Pmx)) 50 ml @ 100 mls/hr Q12 IVPB Last administered on 03/23/17 09:21; Admin Dose 100 MLS/HR; Start 03/19/17 at 11:00 Digoxin (Digoxin) 0.125 mg Q2D@13 PO Last administered on 03/23/17 12:45; Admin Dose 0.125 MG; Start 03/21/17 at 13:00 Ondansetron HCl (Zofran Inj) 4 mg Q6H PRN IV NAUSEA AND/OR VOMITING; Start 03/19 at 10:30 Nitroglycerin (Nitroglycerin (Sl Tab) 0.4 Mg) 1 tab Q5M PRN SL CHEST PAIN; Start 03/19/17 at 10:30 Acetaminophen (Tylenol Tab) 650 mg Q6H PRN PO PAIN LEVEL 1-3 OR FEVER Last administered on 03/20/17 01:49; Admin Dose 650 MG; Start 03/19/17 at 10:30 Acetaminophen (Tylenol Supp) 650 mg Q6H PRN NM PAIN LEVEL 1-3 OR FEVER; Start 03/19/17 at 10:30 Docusate Sodium (Colace) 100 mg Q12H PRN PO CONSTIPATION; Start 03/19/17 at 10: 30 Magnesium Hydroxide (Milk Of Mag) 30 ml DAILY PRN PO CONSTIPATION; Start at 10:30 Bisacodyl (Dulcolax Supp) 10 mg DAILY PRN NM CONSTIPATION; Start 03/19/17 at 10: 30 Miscellaneous Information 1 ea NOTE XX ; Start 03/19/17 at 10:30 Glucose (Glutose) 15 gm Q15M PRN PO DECREASED GLUCOSE; Start 03/19/17 at 10:30 Glucose (Glutose) 22.5 gm Q15M PRN PO DECREASED GLUCOSE; Start 03/19/17 at 10:30 Dextrose (D50w Syringe) 25 ml Q15M PRN IV DECREASED GLUCOSE; Start 03/19/17 at 10:30 Dextrose (D50w Syringe) 50 ml Q15M PRN IV DECREASED GLUCOSE; Start 9/5/17 at 10:30 Glucagon (Glucagen) 1 mg Q15M PRN IM DECREASED GLUCOSE; Start 03/19/17 at 10:30 Glucose (Glutose) 15 gm Q15M PRN BUCCAL DECREASED GLUCOSE; Start 03/19/17 at 10: 30 Pantoprazole (Protonix Tab) 40 mg DAILY@06 PO Last administered on 03/23/17 06: 45; Admin Dose 40 MG; Start 03/21/17 at 06:00 Metoprolol Tartrate (Lopressor) 25 mg BID PO Last administered on 03/23/17 09: 22; Admin Dose 25 MG; Start 03/20/17 at 21:00 Morphine Sulfate (morphine) 2 mg Q3 PRN IV PAIN LEVEL 7-10 Last administered on 03/23/17 11:36; Admin Dose 2 MG; Start 03/21/17 at 09:00 Nystatin 1 applic 1 applic BID TOP Last administered on 03/23/17 09:23; Admin Dose 1 APPLIC; Start 03/21/17 at 21:00 Fluconazole/ Sodium Chloride (Diflucan 100 Mg/ NS (Pmx)) 50 ml @ 50 mls/hr Q24H IVPB Last administered on 03/23/17 11:35; Admin Dose 50 MLS/HR; Start 03/22/17 at 10:00 NURIS WINSLOW MD Mar 23, 2017 14:31
[2017-03-23] MEDS ORDERED: GUAIFENESIN/DM 5ML CUP PO PRN (20:00)
--- NOTE | 2017-03-26 11:17 | CONS ---
DATE OF ADMISSION: 03/19/2017 DATE OF CONSULTATION: 03/23/2017 HISTORY OF PRESENT ILLNESS: The patient was transferred to [facility] from [facility] because of the persistence of pseudocyst. The patient initially was admitted to [facility] for acute pancreatitis and developed respiratory failure. She was admitted to the intensive care unit and she was intubated. She had a tracheostomy performed and the workup showed evidence of a choledocholithiasis. The patient had ERCP done and choledocholithiasis was removed and CBD stent was placed. Samuel also had a gastrojejunostomy tube placed for feeding purposes, which seems to be working pretty good at this time. She developed a pseudocyst of the pancreas. Initially a larger pseudocyst collection was noted in the upper abdomen. Percutaneous drainage was put in by radiologist and continued to show evidence of a persistent drainage, however it was not getting clear. Because of this, the stent was placed into the pancreatic duct to facilitate internal drainage. And again, she showed a left lower quadrant fluid collection, and this again was felt to be drained, hence after discussing with radiologist and the family physician, , the drainage of the left lower quadrant also was performed. No drainage tube left behind. The stent percutaneously put up in the upper abdomen continues to show evidence of persistent fluid collection and drainage is continuously ongoing. She has been treated with antibiotics. PHYSICAL EXAMINATION: GENERAL: Patient appears well. She is status post tracheostomy now, which has been the case for a while. VITAL SIGNS: Blood pressure is 134/82, pulse is 67, temperature is 98. HEART: Unremarkable. LUNGS: Unremarkable. ABDOMEN: Showed evidence of soft abdomen with a G-J tube working well and she is tolerating the G-tube feeding well. Secondly, she has evidence of catheter draining at least 20 to 30 cc of pancreatic juice every day. IMPRESSION: Persistent pancreatitis with a pancreatic pseudocyst, not clearing despite percutaneous drainage and endoscopic drainage into the duodenum. PLAN: At this time, the pancreatic surgery consultation was obtained and we are awaiting further advice. Dictated By: Sha Rivers MD /[email or web address] /Document#: [id number]
== END 2017-03-23 20:36 | disposition short-term general hospital (02) | DRG 871 ==
LOC: E/R 01:55 → ICU 04:35 → MS4 03-21 14:44
PROVIDERS: ADMIT Internal Medicine; ATTEND Internal Medicine
PROC: 06HM33Z Insertion of Infusion Device into Right Femoral Vein, Percutaneous Approach (ICD-10-PCS; 2017-03-19)
PROC: B54BZZA Ultrasonography of Right Lower Extremity Veins, Guidance (ICD-10-PCS; 2017-03-19)
PROC: 0F798DZ Dilation of Common Bile Duct with Intraluminal Device, Via Natural or Artificial Opening Endoscopic (ICD-10-PCS; principal; 2017-03-20 18:00)
DX: A41.9 Sepsis, unspecified organism (principal); I21.3 ST elevation (STEMI) myocardial infarction of unspecified site; R65.21 Severe sepsis with septic shock; N39.0 Urinary tract infection, site not specified; K80.30 Calculus of bile duct with cholangitis, unspecified, without obstruction; E11.9 Type 2 diabetes mellitus without complications; B96.20 Unspecified Escherichia coli [E. coli] as the cause of diseases classified elsewhere; I24.8 Other forms of acute ischemic heart disease; I25.10 Atherosclerotic heart disease of native coronary artery without angina pectoris; I10 Essential (primary) hypertension; E78.5 Hyperlipidemia, unspecified; I48.2 Chronic atrial fibrillation; B96.5 Pseudomonas (aeruginosa) (mallei) (pseudomallei) as the cause of diseases classified elsewhere; Z95.2 Presence of prosthetic heart valve; Z95.1 Presence of aortocoronary bypass graft; Z79.84 Long term (current) use of oral hypoglycemic drugs; Z79.02 Long term (current) use of antithrombotics/antiplatelets; Z79.82 Long term (current) use of aspirin
CPT/HCPCS: 36415; 36430; 71010; 74176; 74330; 80048; 80053; 80076; 80162; 81001; 81003; 82150; 82550; 82553; 82962; 83036; 83605; 83690; 83735; 84100; 84443; 84484; 85025; 85610; 85730; 86850; 86900; 86901; 87040; 87086; 92610; 93005; 93306; 96365; 96375; J1940; C2617; C9113; J0692; J1100; J1450; J1815; J2185; J2250; J2270; J2405; J2710; J3010; J3370; J3475; J7030; J7040; J7999; P9059; Q9967

== ENCOUNTER 2018-01-24 13:48 | Inpatient (IN) | END 2018-02-04 20:35 | DRG 853 ==

== ENCOUNTER 2018-02-24 19:30 | Inpatient (IN) | END 2018-02-27 18:29 | DRG 871 ==